=== PATIENT | female | born 1950 | race Caucasian/White ===

== ENCOUNTER 2016-10-13 10:25 | Emergency (ER) | payer BC, MEDICARE ==
--- NOTE | 2016-10-13 11:27 | RAD ---
Exams: Three-view right wrist and three-view right hand COMPARISON: None INDICATION: Mechanical fall yesterday, FOOSH right hand with bruising and pain. TECHNIQUE: PA, lateral and oblique views of the left hand and PA, lateral and oblique views of the right wrist were obtained. FINDINGS: Diffuse bony osteopenia. This limits evaluation for nondisplaced fracture. There is a displaced, intra-articular fracture within the proximal phalanx of the fourth finger. This is not well-seen on the lateral view due to overlapping osseous structures. Fracture fragments are splayed by up to at least 3 mm, and there is mild ulnar angulation of the dominant fracture fragment. Associated soft tissue swelling is seen. There is also a mildly displaced intra-articular chip fracture involving the radial aspect of the proximal phalanx of the fifth finger. The displaced fracture fragment is rotated and displaced by a few millimeters in the radial direction. No additional fracture is identified within the right hand or wrist. IMPRESSION: 1. Displaced intra-articular fractures involving the proximal phalanges of the right fourth and fifth fingers as above. 2. No acute osseous abnormality in the right wrist. 3. Osteopenia.
== END 2016-10-13 13:11 | disposition home or self-care (01) ==
LOC: ED 10:25
DX: S62.616A Displaced fracture of proximal phalanx of right little finger, initial encounter for closed fracture (principal); S62.614A Displaced fracture of proximal phalanx of right ring finger, initial encounter for closed fracture; R07.9 Chest pain, unspecified; M25.531 Pain in right wrist; F17.210 Nicotine dependence, cigarettes, uncomplicated; W18.30XA Fall on same level, unspecified, initial encounter; Y92.9 Unspecified place or not applicable

== ENCOUNTER 2016-10-15 10:17 | Inpatient (IN) | payer MEDICARE ==
--- NOTE | 2016-10-15 10:55 | RAD ---
HISTORY: Ground level fall 3 days ago. Right hip pain. Prior history of pubic rami fracture on the right. COMPARISONS: 09/07/2011 FINDINGS: AP pelvis with AP and crosstable lateral views of the right hip are obtained. Bones: Comminuted intertrochanteric fracture is identified involving the right hip. Proximal retraction of the distal fracture fragment is noted. No intra-articular extension is present. Posterior back deformity from the patient's prior right superior and inferior pubic rami fractures are also present. Joints: Moderate superior joint space loss is present bilaterally. Soft tissue: Normal Other: Nonspecific bowel gas pattern overlays the osseous structures.. IMPRESSION: Intertrochanteric fracture of the right hip. Findings were called to Ms. Reyez at approximately 1049 hours on 10/15/2016.
[2016-10-15 11:34] LABS: ABSOLUTE NEUTROPHIL COUNT 9.2 K/mm3 (1.8-7.7); BASO # 0.1 K/mm3 (0.0-0.2); BASO % 0.5 % (0.2-1.0); EOS # 0.1 (0.0-0.5); EOS % 0.9 % (0.9-2.9); HEMATOCRIT 42.9 % (37.0-47.0); HEMOGLOBIN 13.7 gm/l (12.0-16.0); IMM NEUT # 0.2 K/mm3 (0-0.2); IMM NEUT% 1.2 % (0-1); LYMPH # 2.1 (1.0-4.8); MEAN CELL VOLUME 91.9 fl (81.0-99.0); MEAN CORPUSCULAR HEMOGLOBIN 29.3 pg (27.0-31.0); MEAN CORPUSCULAR HGB CONC 31.9 g/dl (33.0-37.0); MEAN PLATELET VOLUME 10.5 fl (7.4-10.4); MONO # 1.3 (0.0-0.8); MONO % 10.3 % (4-12); NEUT % 71.1 % (43-75); PLATELET COUNT 279 K/mm3 (130-400); RED CELL DISTRIBUTION WIDTH 14.7 % (11.5-14.5)
[2016-10-15 11:49] LABS: ALB/GLOB RATIO 1.3 (>1.0); ALBUMIN 3.9 gm/dL (3.5-5.7); CALCIUM 9.5 mg/dL (8.6-10.3)
[2016-10-15 12:04] LABS: INR 0.91; PROTHROMBIN TIME 9.6 SECONDS (9.3-11.4)
--- NOTE | 2016-10-15 12:13 | RAD ---
10/15/2016 12:09 PM CHEST-AP BEDSIDE History: Preop chest x-ray. Comparison: None Findings: Single AP view of the chest is obtained. The lungs are clear with out effusion or pneumothorax. The cardiomediastinal silhouette is unremarkable.. The osseous structures demonstrate S type thoracolumbar scoliosis, which distorts the normal anatomy. Diffuse osteopenia is also noted. IMPRESSION: No acute intrathoracic process.
[2016-10-15] MEDS ORDERED: MENTHOL/CETYLPYRD 1 EACH LOZENGE PO PRN (12:54)
[2016-10-15] MEDS ORDERED: BISACODYL 10 MG SUP PR PRN (12:54)
[2016-10-15] MEDS ORDERED: MAGNESIUM HYDROXIDE 30 ML UDCUP PO PRN (12:54)
[2016-10-15] MEDS ORDERED: BLISTEX LIPSTICK 1 EACH TP PRN (12:54)
[2016-10-15] MEDS ORDERED: SODIUM CHLORIDE 0.9% 100 ML IV PRN (12:54)
[2016-10-15] MEDS ORDERED: ACETAMINOPHEN 325 MG TABLET PO PRN (12:54)
[2016-10-15] MEDS ORDERED: BISACODYL 5 MG TABLET.EC PO PRN (12:54)
[2016-10-15] MEDS ORDERED: CLINDAMYCIN 600 MG PREMIX 600 MG in Premix (D5W) 50 ml 1 EACH IV PRN (12:55)
--- NOTE | 2016-10-15 12:55 | PDOC36 ---
Provider Note Subject: Please see dictated note for full ortho consult Summary: Pt is a 66 yr old female who is RHD who sustained a fall 3 days ago resulting in a right ring finger intra-articular proximal phalanx fracture. She was seen in the [facility] but continued to have right hip pain. She returned to the ER today and was diagnosed with a right hip intertrochanteric frx with varus angulation. THe patient's PMH is significant for MS and she has poor balance at baseline. She often is in a wheelchair at home. THe patient and I spoke today about her injuries. I spoke to the patient's and with . We will plan on the patient going to surgery Monday where we will perform a right hip intertrochanteric frx ORIF with an IMN and possible right ring finger proximal phalanx fracture CRPP vs ORIF. We will have clinda safety instruction police officer to the OR due to her PCN allergy. NPO after midnight and consent is in the chart.
[2016-10-15] MEDS ORDERED: NICOTINE POLACRILEX 2 MG GUM PO PRN (13:03)
[2016-10-15] MEDS ORDERED: LORAZEPAM 2 MG/ML 1ML SDV IV PRN (13:03)
[2016-10-15] MEDS ORDERED: NICOTINE POLACRILEX 2 MG LOZENGE PO PRN (13:03)
[2016-10-15 13:05] LABS: URINE BILIRUBIN NEGATIVE (NEGATIVE); URINE BLOOD 1+ (NEGATIVE); URINE GLUCOSE (UA) NEGATIVE (NEGATIVE); URINE LEUKOCYTE ESTERASE TRACE (NEGATIVE); URINE NITRITE POSITIVE (NEGATIVE); URINE PROTEIN TRACE (NEGATIVE); URINE UROBILINOGEN NORMAL (0-1 mg/dl)
[2016-10-15 13:07] LABS: URINE APPEARANCE SL CLOUDY; URINE COLOR AMBER
[2016-10-15] MEDS ORDERED: IBUPROFEN 200 MG TABLET PO PRN (13:14)
[2016-10-15 13:16] LABS: URINE BACTERIA 4+; URINE RBC 0 /hpf
[2016-10-15] MEDS ORDERED: ONDANSETRON 4 MG/2ML 2 ML VIAL IV PRN (13:17)
[2016-10-15] MEDS ORDERED: HYDROCODONE/ACETAMINOPHEN 5/325MG TABLET PO PRN (13:17)
[2016-10-15] MEDS ORDERED: ONDANSETRON 4 MG ODT TAB PO PRN (13:17)
[2016-10-15] MEDS ORDERED: NICOTINE 7 MG PATCH 1 EACH TD PRN (13:30)
[2016-10-15] MEDS ORDERED: MULTIVITAMINS 10 ML, FOLIC ACID 2 MG, MAGNESIUM SULFATE 1 G/2 ML 2 G, THIAMINE HCL 100 ... IV ONE ×5 (13:40)
[2016-10-15] MEDS ORDERED: PNEUMOCOCCAL 23-VAL P-SAC VAC 0.5 ML VIAL IM V ONE (13:56)
[2016-10-15 13:59] VITALS: BMI 19.6
[2016-10-15] MEDS ORDERED: PUMP TUBING ONE (14:03)
[2016-10-15] MEDS: MULTIVITAMINS 1 TAB TABLET PO SCH (14:06)
--- NOTE | 2016-10-15 16:28 | HP ---
RAMAN BAILEY [id number] DATE OF ADMISSION: 10/15/2016 CHIEF COMPLAINT: Right hip fracture. HISTORY OF PRESENT ILLNESS: The patient is a 66-year-old female with a history of MS, with poor memory, right-sided weakness and known osteoporosis who had a fall earlier this month. She was initially seen on the and noted to have fractures involving the bases of the 4th and 5th phalanges on the right hand, but on going home she was having persisting pain anytime she had changes in position. This pain was described as being in the right groin area. She was seen by LOLLY Alexis, and x-ray had shown an intertrochanteric fracture of the right hip. She was referred to the Hospitalist Service for admission and anticipated operative repair on 10/16/2016. PAST MEDICAL HISTORY: Remarkable for: 1. Multiple sclerosis. She has previous documentation of gait disturbance and balance difficulties. 2. History of hypertension. 3. History of osteoporosis, with a previous fractured humerus and a pubic ramus fracture in 2010. She had previous been on Boniva, but is not currently. 4. She is also noted to have some degree of dementia. PAST SURGICAL HISTORY: Negative. ALLERGIES: Penicillin. MEDICATIONS: 1. Lisinopril. They are uncertain as to the dosage. 2. She has been taking some ibuprofen and pain medicines recently. She had been on Boniva in the past, but is not currently. 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 She has been 43 years. Her is a retired chief justice for the [employer] [place]. They have three sons, two of which live at home. She smokes a half pack of cigarettes a day. She has about four drinks of beer a day. No particular mandaen affiliation. She has two cats. She walks with some difficulty. She does not have any hobbies anymore and does not do art anymore because of her MS. FAMILY HISTORY: Both parents in their 80's, were generally healthy otherwise. Kids have been healthy. REVIEW OF SYSTEMS: No eye, ear, nose or throat complaints. No respiratory complaints. No heart complaints. No fevers. No stomach complaints. No urinary complaints, other than incontinence, and her notes that she has been generally incontinent since she had the previous pubic ramus fracture in 2010. No breast complaints. No skin complaints. No bowel complaints. No history of CHF. No history of diabetes. No ankle swelling. Memory has been decreased. She does have moving difficulties due to MS. CODE STATUS: She is DNR status according to her . PHYSICAL EXAMINATION: GENERAL: A nontoxic female. VITAL SIGNS: Blood pressure is 133/98. Heart rate 98. Temperature 98.4. Saturation 97% on room air. Pulse of 14. Respirations are 14. Pain is 5/10. HEENT: Normocephalic, atraumatic. Pupils are small bilaterally. Ears are normal bilaterally. Nose is unremarkable. Mouth is unremarkable. Dentition is fairly good. NECK: Supple. No JVD. No tenderness. LUNGS: Clear to auscultation bilaterally. HEART: Regular rate and rhythm, without murmur. ABDOMEN: Soft, nontender and nondistended. Bowel sounds are normal. GENITOURINARY: Exam is deferred. BREASTS: Exam is deferred. EXTREMITIES: Right hand with bruising and deformity noted, with the 4th and 5th fingers displaced away from the thumb. Her right hip is externally rotated and slightly shortened. Knees, tibia, fibula, ankles and feet are unremarkable, although her 3rd digit on both feet is shorter than would be expected. Pulses are good in both feet at the dorsalis pedis. Wrists; pulses are present bilaterally. NEUROLOGIC: She is alert and answers appropriately. Cranial nerves are intact. Speech appears to be clear and appropriate. Although she has difficulty with history and although she is oriented to location, she is unable to tell me the month or the year. LABS: White count 12.9, hemoglobin 13.7, platelets 279. MCV is 91.9, sodium 138, potassium 3.8, chloride 103, C02 of 25, BUN of 21, creatinine 0.6 and glucose 95. AST of 56 and ALT of 47. Alkaline phosphatase of 101. Albumin 3.9, globulin 3.0 and INR of 0.91. IMAGIN. Chest x-ray is normal. 2. Hip x-ray shows intertrochanteric right hip fracture and previous pelvic fracture. EKG: Not available. ASSESSMENT/PLAN: 1. Right intertrochanteric fracture of the right hip. Fall attributed to MS. Weakness, with poor balance. Underlying osteoporosis. Anticipate repair on 10/16/2016. Appreciate orthopedic care. Will also be checking BNP, troponin and a urinalysis. 2. Multiple sclerosis, with poor balance. Right-sided weakness reported. Appreciate therapeutic evaluation. 3. Regular alcohol use. The patient denies any history of withdrawal. Anticipate use of banana bag and monitor for withdrawal. Multivitamin and will check a magnesium level as well. 4. Right hand fracture, right 4th and 5th proximal phalanges. Appreciate orthopedic input. 5. Osteoporosis. Will check a vitamin D level. Appreciate outpatient follow-up. 6. Smoking. Anticipate nicotine replacement as needed. 7. Hypertension, on Lisinopril. is uncertain of dosage, but the last time here it was 20 mg previously. Will order this with perimeter. 8. Dementia attributed to multiple sclerosis. Currently will be checking with occupational therapy. The patient does appear to have some degree of impairment. 9. Code status is DNR, verified with today. 10. Elevated white blood cell count. Will be checking a urinalysis and troponin. Other labs appear to be unremarkable so far. 11. Venous thrombosis prophylaxis. Anticipate mechanical treatment before surgery. DISPOSITION: The patient is hoping to return to home, and will consider this if she is able to manage with her postoperatively, although her sons should be at home as well for some of this time. cc: Dr. Truong Reyez, LOLLY
[2016-10-15] MEDS: DOCUSATE SODIUM 100 MG CAPSULE PO SCH (20:15)
[2016-10-15] MEDS: D5 1/2NS with 20 mEq KCL 1,000 ML IV SCH (21:59)
[2016-10-16 06:21] LABS: BASO # 0.1 K/mm3 (0.0-0.2); BASO % 0.6 % (0.2-1.0); EOS # 0.3 (0.0-0.5); EOS % 2.5 % (0.9-2.9); HEMATOCRIT 34.7 % (37.0-47.0); HEMOGLOBIN 11.3 gm/l (12.0-16.0); IMM NEUT # 0.1 K/mm3 (0-0.2); IMM NEUT% 0.6 % (0-1); LYMPH # 2.2 (1.0-4.8); LYMPH % 22.5 % (15-45); MEAN CELL VOLUME 89.9 fl (81.0-99.0); MEAN CORPUSCULAR HEMOGLOBIN 29.3 pg (27.0-31.0); MEAN CORPUSCULAR HGB CONC 32.6 g/dl (33.0-37.0); MEAN PLATELET VOLUME 10.7 fl (7.4-10.4); MONO # 1.3 (0.0-0.8); MONO % 13.2 % (4-12); NEUT % 60.6 % (43-75); PLATELET COUNT 266 K/mm3 (130-400); RED CELL DISTRIBUTION WIDTH 14.7 % (11.5-14.5)
[2016-10-16 06:40] LABS: CALCIUM 8.2 mg/dL (8.6-10.3)
[2016-10-16] MEDS ORDERED: PROPOFOL 20 ML IV ONE ×3 (07:19→10:36)
[2016-10-16] MEDS ORDERED: MIDAZOLAM HCL 1 MG/ML 2ML VIAL ONE (07:19)
[2016-10-16] MEDS ORDERED: FENTANYL 100 MCG/2 ML VIAL ONE (07:19)
[2016-10-16] MEDS ORDERED: SPINAL PROCEDURAL TRAY 1 EACH ONE (07:19)
[2016-10-16] MEDS ORDERED: CLINDAMYCIN 600 MG PREMIX 50 ML IV ONE (07:21)
[2016-10-16] MEDS ORDERED: LACTATED RINGERS 1,000 ML ONE (07:21)
--- NOTE | 2016-10-16 07:23 | PDOC43 ---
- Subjective Subjective: Reports Pain Tolerable (Pt ready for surgery. NPO since midnight. NO questions today but would like to get the surgery over with this morning.), Denies Chest Pain, Denies Shortness of Breath, Denies Nausea, Denies Vomiting - Objective Vital Signs Temperature 98.1 F 10/16/16 07:06 Pulse Rate 87 10/16/16 07:06 Respiratory Rate 18 10/16/16 07:06 Blood Pressure 128/89 10/16/16 07:06 O2 Saturation by Pulse Oximetry 96 10/16/16 07:06 Oxygen Delivery Method Room Air Oxygen Flow Rate 0 Laboratory 10/16/16 05:30 10/16/16 05:30 10/16/16 05:30 RBC 3.86 L MCHC 32.6 L RDW 14.7 H Estimated GFR 124 H Calcium 8.2 L Active Medication Orders Category Date Time Status Acetaminophen [Tylenol] Med 10/15/16 12:54 Active 650 mg PO Q6H PRN Bisacodyl [Dulcolax] Med 10/15/16 12:54 Active 10 mg HI DAILY PRN Bisacodyl [Dulcolax] Med 10/15/16 12:54 Active 5 mg PO DAILY PRN Clindamycin 600 mg Premix [Cleocin-D5w 600 mg/50 ml] Med 10/15/16 12:55 Active 600 mg Premix (D5W) 50 ml 1 each IV ON HOLD TO OR D5 1/2NS with 20 mEq KCL [D51/2NS with 20 mEq KCL] 1, Med 10/15/16 19:15 Active 000 ml IV 75 mls/hr Docusate Sodium [Colace] Med 10/15/16 21:00 Active 100 mg PO BID Hydrocodone Bit/Acetaminophen [[place] 5/325] Med 10/15/16 13:17 Active 0.5 - 1 tab PO Q4H PRN Ibuprofen [Advil] Med 10/15/16 13:14 Active 400 mg PO Q6H PRN Lip [place] [Blistex] Med 10/15/16 12:54 Active 1 each TP PRN PRN Lisinopril [Prinivil] Med 10/16/16 09:00 Active 20 mg PO DAILY Lorazepam [Ativan] Med 10/15/16 13:03 Active 0.5 mg IV Q4H PRN Magnesium Hydroxide [Milk of Magnesia] Med 10/15/16 12:54 Active 30 ml PO DAILY PRN Menthol/Cetylpyridinium [Cepacol] Med 10/15/16 12:54 Active 1 each PO PRN PRN Multivitamins [One-A-Day] Med 10/15/16 13:30 Active 1 tab PO DAILY Nicotine 7 mg Patch [Nicoderm Cq] Med 10/15/16 13:30 Active 1 each TD DAILY PRN Nicotine Polacrilex Gum [Nicorette Gum] Med 10/15/16 13:03 Active 2 mg PO Q2H PRN Nicotine Polacrilex Lozenge [Commit Lozenge] Med 10/15/16 13:03 Active 2 mg PO Q2H PRN Ondansetron 4 mg/2ml Vial [Zofran] Med 10/15/16 13:17 Active 4 mg IV Q4H PRN Ondansetron ODT [Zofran Odt] Med 10/15/16 13:17 Active 4 mg PO Q4H PRN Remove Patch Med 10/16/16 13:30 Active 1 each TD X1 Sodium Chloride 0.9% 100 ml Med 10/15/16 12:54 Active IV PRN Sodium Chloride 0.9% Flush [Normal Saline 10ml Flush] Med 10/15/16 12:54 Active 10 - 50 ml IV PRN PRN Sodium Chloride 0.9% Flush [Normal Saline 10ml Flush] Med 10/15/16 17:00 Active 10 ml IV Q8HR Intake and Output 10/14/16 10/15/16 10/16/16 23:59 23:59 23:59 Intake Total 835 1135 Output Total 250 450 Balance 585 685 General: Afebrile - Right Upper Extremity Incision: Ecchymosis (Gross deformity of right ring finger with ulnar deviation secondary to intra-articular fracture of the base of the proximal phalanx.) Motor: Extensor Pollicis Longus: 4/5, Finger Flexors: 4/5, Finger Extensors: 4/5 , Wrist Flexors: 4/5, Wrist Extensors: 4/5 Gross Sensation to Light Touch: Present: Median Nerve, Radial Nerve, Absent: Ulnar Nerve (decreased) Capillary Refill: < 3 Seconds (Pt has decreased sensation on the ulnar and radial side of the right ring finger) - Problems (1) Proximal phalanx fracture of finger Status: Acute - Disposition HD#2 s/p admission for a right hip intertrochanteric frx and right ring finger proximal phalanx intra-articular fracture Pt is npo and consented for a right hip IMN for her IT frx and a CRPP vs ORIF for a right ring finger proximal phalanx frx Labs are stable Pt is NWB on the RUE and RLE Clinda data operations manager to the OR
--- NOTE | 2016-10-16 07:27 | PDOC43 ---
- Subjective Chief Complaint: hip pain, fx Patient reports doing ok. Had some dementia related findings during the night, but no significant agitation/delirium. Pain control seems ok. Planning on going to OR today. - Objective Vital Signs Temperature 98.1 F 10/16/16 07:06 Pulse Rate 87 10/16/16 07:06 Respiratory Rate 18 10/16/16 07:06 Blood Pressure 128/89 10/16/16 07:06 O2 Saturation by Pulse Oximetry 96 10/16/16 07:06 Oxygen Delivery Method Room Air Oxygen Flow Rate 0 Vital Signs Last 12 Hours Temp Pulse Resp BP Pulse Ox 10/16/16 07:06 98.1 F 87 18 128/89 96 10/16/16 03:56 97.8 F 92 18 134/86 95 10/16/16 01:00 16 10/16/16 00:00 98.5 F 108 16 128/82 96 10/15/16 20:00 99.2 F 108 18 133/78 99 Intake and Output 10/14/16 10/15/16 10/16/16 23:59 23:59 23:59 Intake Total 835 1135 Output Total 250 450 Balance 585 685 General: Alert, Cooperative, No Acute Distress HEENT: Atraumatic Lungs: Clear to Auscultation Bilaterally, Normal Air Movement Cardiovascular: Regular Rate and Rhythm Abdomen: Soft, Normal Bowel Sounds, Non-Distended Extremities: Edema (mild puffiness and bruising of R hand), Other (R hand with ulnar deviation of 4th and 5th fingers, bruising. R hip with internal rotation.) Neurological: Normal Speech Psych/Mental Status: Normal Affect Laboratory 10/16/16 05:30 10/16/16 05:30 10/16/16 05:30 RBC 3.86 L MCHC 32.6 L RDW 14.7 H Estimated GFR 124 H Calcium 8.2 L Current Medications: Current meds reviewed in EMR. Active Medications Acetaminophen (Tylenol) 650 mg PO Q6H PRN PRN Reason: Pain or Temperature > 100.5 F Acetaminophen/Hydrocodone Bitart ([place] 5/325) 0.5 - 1 tab PO Q4H PRN PRN Reason: Pain Benzocaine/Menthol (Cepacol) 1 each PO PRN PRN PRN Reason: Sore Throat Bisacodyl (Dulcolax) 10 mg PA DAILY PRN PRN Reason: Constipation Bisacodyl (Dulcolax) 5 mg PO DAILY PRN PRN Reason: Constipation Docusate Sodium (Colace) 100 mg PO BID [facility] Last Admin: 10/15/16 20:15 Dose: 100 mg Clindamycin HCl/Dextrose 600 (mg/ Premix (D5W) 50 ml) 50 mls @ 150 mls/hr IV ON HOLD TO OR PRN PRN Reason: ANTIBIOTIC PROPHYLAXIS Sodium Chloride (Sodium Chloride 0.9%) 100 mls @ 25 mls/hr IV PRN PRN PRN Reason: Flush Potassium Chloride/Dextrose/Sod Cl (D51/2ns With 20 Meq Kcl) 1,000 mls @ 75 mls /hr IV .[id number] [facility] Last Admin: 10/15/16 21:59 Dose: 75 mls/hr Ibuprofen (Advil) 400 mg PO Q6H PRN PRN Reason: Pain Lisinopril (Prinivil) 20 mg PO DAILY [facility] Lorazepam (Ativan) 0.5 mg IV Q4H PRN PRN Reason: Anxiety Magnesium Hydroxide (Milk Of Magnesia) 30 ml PO DAILY PRN PRN Reason: Constipation Miscellaneous (Remove Patch) 1 each TD X1 [facility] Multivitamins (One-A-Day) 1 tab PO DAILY [facility] Last Admin: 10/15/16 14:06 Dose: 1 tab Nicotine (Nicoderm Cq) 1 each TD DAILY PRN PRN Reason: Withdrawal Symptoms Nicotine Polacrilex (Commit Lozenge) 2 mg PO Q2H PRN PRN Reason: Withdrawal Symptoms Nicotine Polacrilex (Nicorette Gum) 2 mg PO Q2H PRN PRN Reason: Withdrawal Symptoms Ondansetron HCl (Zofran) 4 mg IV Q4H PRN PRN Reason: Nausea/Vomiting Ondansetron HCl (Zofran Odt) 4 mg PO Q4H PRN PRN Reason: Nausea/Vomiting Petrolatum/Paraffin/Mineral Oil (Blistex) 1 each TP PRN PRN PRN Reason: Dry and/or chapped lips Sodium Chloride (Normal Saline 10ml Flush) 10 ml IV Q8HR [facility] Last Admin: 10/16/16 03:14 Dose: Not Given Sodium Chloride (Normal Saline 10ml Flush) 10 - 50 ml IV PRN PRN PRN Reason: IV Flush - Problems: Assessment/Plan (1) Intertrochanteric fracture of right hip Status: Acute Assessment/Plan: Appreciate ortho, anesthesia care. Anticipate ORIF/IM nailing this am. (2) Dementia Status: Chronic Assessment/Plan: Hx MS Did get banana bag yesterday. On MVI; Caution with meds to try to reduce chance of delirium. (3) Hypertension Status: Chronic Assessment/Plan: Stable, paramters (4) Multiple sclerosis Status: Chronic Assessment/Plan: Stable, not on active therapies at this time. (5) Osteoporosis Status: Chronic Assessment/Plan: Follow up outpt. Previously on Boniva (6) Smoking 1/2 pack a day or less Status: Chronic Assessment/Plan: Nicotine replacement prn VTE Prophylaxis: mechanical. Disposition: home vs SNF, [facility] /
[2016-10-16] MEDS ORDERED: KETAMINE HCL UD SYRINGE 100 MG/2 ML IV ONE (08:12)
[2016-10-16] MEDS ORDERED: DIPHENHYDRAMINE HCL 50 MG/1 ML VIAL ONE (08:17)
[2016-10-16] MEDS ORDERED: DEXAMETHASONE SOD PHOS 4 MG/1 ML VIAL ONE (08:20)
[2016-10-16] MEDS: DOCUSATE SODIUM 100 MG CAPSULE PO SCH ×3 (08:32→22:02)
[2016-10-16] MEDS: MULTIVITAMINS 1 TAB TABLET PO SCH (08:32)
[2016-10-16] MEDS ORDERED: HYDROMORPHONE HCL 1 MG/ML SYRINGE IV PRN (08:49)
[2016-10-16] MEDS ORDERED: NALOXONE HCL 0.4 MG/ML VIAL IV PRN (08:49)
[2016-10-16] MEDS ORDERED: FENTANYL 100 MCG/2 ML VIAL IV PRN (08:49)
[2016-10-16] MEDS ORDERED: PROMETHAZINE HCL 25 MG/ML VIAL IM PRN (08:49)
[2016-10-16] MEDS ORDERED: MEPERIDINE 25 MG/ML SYRINGE IV PRN (08:49)
[2016-10-16] MEDS ORDERED: HYDRALAZINE HCL 20 MG/1 ML VIAL IV PRN (08:49)
[2016-10-16] MEDS ORDERED: LABETALOL HCL 5 MG/ML 20ML VIAL IV PRN (08:49)
[2016-10-16] MEDS ORDERED: ATROPINE SULFATE 0.4 MG/1 ML VIAL IV PRN (08:49)
[2016-10-16] MEDS ORDERED: LACTATED RINGERS 1,000 ML IV SCH (09:00)
[2016-10-16] MEDS ORDERED: LISINOPRIL 20 MG TABLET PO SCH (09:00)
[2016-10-16] MEDS ORDERED: BUPIVACAINE 0.5% (PRES FREE) 30 ML VIAL ONE (10:33)
[2016-10-16] MEDS ORDERED: ONDANSETRON 4 MG/2ML 2 ML VIAL ONE (11:30)
--- NOTE | 2016-10-16 11:42 | RAD ---
HIP RIGHT 2 VIEWS PORTABLE HISTORY: Intraoperative fluoroscopy for ORIF. COMPARISONS: 10/15/2016 plain from series. FINDINGS: 4 overhead fluoroscopic images are provided for review. These images demonstrate intramedullary adriana and screw fixation of the patient's intertrochanteric fracture of the right hip. Study is limited with respect osseous detail given fluoroscopic technique. Fluoroscopy time: 173.7 seconds IMPRESSION: Intraoperative fluoroscopy as above. Please see orthopedist note regarding the procedure for further details.
[2016-10-16] MEDS ORDERED: KETOROLAC TROMETHAMINE 30 MG/ML 1 ML VIAL ONE (11:49)
--- NOTE | 2016-10-16 12:17 | PCMBPN ---
Brief Post Op Note: Date of Procedure: 10/16/16 Preoperative Diagnosis: 1. right hip intertrochanteric frx and right ring finger proximal phalanx intraarticular frx Postoperative Diagnosis: 1. [Same] Procedure: right hip intertrochanteric frx ORIF with placement of intrameduallary nail and right ring finger proximal phalanx intra-articular frx CRPP Surgeon: Chris Goldman MD Assist: Walker GLASSBLOWER Anesthesia: Spinal and 12mL 0.5% marcaine without epi for a right ring finger digital block Findings: Pt had a right IT frx fixed with a Je[employer] Intertan nail (95 and 90mm screws proximally) and 32.5 and 37.5 distally in a 10mm x 36mm nail. 3 x .45 k wires used for the CRPP of the right ring finger placed below the skin surface Condition: extubated, stable vitals, transferred to pacu Complications: None IV Fluids: 2200 mLs of LR Urine Output: 250 mLs Estimated Blood Loss: 50 mLs Tourniquet Time: [N/A] Specimens: [N/A] Implants: see above Drains: [N/A] PLAN: WBAT on the RLE and NWB on the RUE. Keep splint on the RUE at all times. Clinda x 24 hours post-op. Lovenox for DVT on POD#1. PT and OT to work with the patient post-op for transfers
[2016-10-16] MEDS ORDERED: MORPHINE SULFATE 4 MG/ML SYRINGE IV PRN (12:50)
[2016-10-16] MEDS ORDERED: ONDANSETRON 4 MG/2ML 2 ML VIAL IV PRN (12:50)
[2016-10-16] MEDS ORDERED: CALCIUM CARBONATE 500 MG TAB.CHEW PO PRN (12:50)
--- NOTE | 2016-10-16 13:02 | RAD ---
HAND RIGHT 2 VIEWS HISTORY: Intraoperative fluoroscopy, ORIF. COMPARISONS: Plain films 10/13/2016 FINDINGS: 2 overhead fluoroscopic images are provided for review. These images demonstrate K wire fixation of the patient's fourth proximal phalanx fracture. The patient's fifth proximal phalanx fracture is again noted. Study is limited with respect osseous detail given fluoroscopic technique. Fluoroscopy time: 4 minutes and 12 seconds. IMPRESSION: Intraoperative fluoroscopy as above. Please see orthopedist note regarding the procedure for further details.
[2016-10-16] MEDS: LACTATED RINGERS 1,000 ML IV SCH ×2 (13:24→21:26)
[2016-10-16] MEDS ORDERED: REMOVE PATCH 1 EACH UNIT TD SCH (13:30)
--- NOTE | 2016-10-16 13:41 | RAD ---
PELVIS, FEMUR RIGHT HISTORY: Postop ORIF. COMPARISONS: Right hip series to 12/29/2016 FINDINGS: AP pelvis with AP and frog-leg lateral views of the right femur are obtained. These images demonstrate intramedullary adriana placement with screw fixation across the patient's intertrochanteric fracture. Hardware is intact without signs of failure or loosening. Soft tissue gas and skin jarred are present compatible with the postoperative state. No new fracture or dislocation. Limited evaluation of the pelvis and knee are unremarkable with posttraumatic deformity from the patient's prior injury to the right pubic rami. IMPRESSION: Satisfactory postoperative exam.
[2016-10-16] MEDS: ACETAMINOPHEN 500 MG TABLET PO SCH ×3 (14:13→22:01)
[2016-10-16] MEDS: CLINDAMYCIN 600 MG PREMIX 600 MG in Premix (D5W) 50 ml 1 EACH IV SCH ×2 (14:13→21:26)
[2016-10-16] MEDS ORDERED: IV START KIT ONE (17:57)
[2016-10-16] MEDS ORDERED: TRAMADOL HCL 50 MG TABLET PO PRN (19:00)
[2016-10-16] MEDS ORDERED: PUMP TUBING ONE (21:15)
[2016-10-16] MEDS: ASCORBIC ACID 500 MG TABLET PO SCH ×2 (21:27→22:04)
[2016-10-16] MEDS: MULTIVIT W/ MINERALS 1 TAB TABLET PO SCH ×2 (21:28→22:04)
[2016-10-16] MEDS: SULFAMETHOXAZOLE 800 MG/TRIMETHOPRIM 160 MG TABLET PO SCH ×2 (21:28→22:04)
[2016-10-16] MEDS: D5 1/2NS with 20 mEq KCL 1,000 ML IV SCH (21:32)
[2016-10-16] MEDS: FOLIC ACID 1 MG TABLET PO SCH ×2 (21:35→22:04)
[2016-10-16] MEDS: THIAMINE HCL 100 MG TABLET PO SCH ×2 (21:35→22:04)
[2016-10-17] MEDS: ACETAMINOPHEN 500 MG TABLET PO SCH ×4 (02:43→19:07)
[2016-10-17] MEDS: OXYCODONE HCL 5 MG TABLET PO PRN ×2 (03:25→15:29)
[2016-10-17] MEDS: LACTATED RINGERS 1,000 ML IV SCH ×3 (05:30→20:53)
[2016-10-17 06:04] LABS: MEAN CELL VOLUME 91.7 fl (81.0-99.0); MEAN CORPUSCULAR HEMOGLOBIN 29.6 pg (27.0-31.0); MEAN CORPUSCULAR HGB CONC 32.3 g/dl (33.0-37.0); RED CELL DISTRIBUTION WIDTH 14.6 % (11.5-14.5)
[2016-10-17 06:27] LABS: CALCIUM 8.7 mg/dL (8.6-10.3)
--- NOTE | 2016-10-17 07:44 | PDOC43 ---
- Subjective Subjective: Reports Pain Tolerable, Reports Other (Pt confused this morning. Does not remember why she is here at the hospital. She does know she is at [facility]) - Objective Vital Signs Temperature 97.7 F 10/17/16 04:00 Pulse Rate 84 10/17/16 04:00 Respiratory Rate 16 10/17/16 07:20 Blood Pressure 123/84 10/17/16 04:00 O2 Saturation by Pulse Oximetry 97 10/17/16 04:00 Oxygen Delivery Method Room Air Oxygen Flow Rate 0 Laboratory 10/17/16 05:30 10/17/16 05:30 10/17/16 05:30 RBC 3.38 L MCHC 32.3 L RDW 14.6 H Estimated GFR 124 H Active Medication Orders Category Date Time Status Acetaminophen [Tylenol] Med 10/16/16 14:00 Active 1,000 mg PO Q6H Ascorbic Acid [Vitamin C] Med 10/16/16 21:00 Active 500 mg PO BID Bisacodyl [Dulcolax] Med 10/19/16 12:19 Active 10 mg NM DAILY PRN Calcium Carbonate [Tums] Med 10/16/16 12:50 Active 1,000 - 2,000 mg PO Q2H PRN Docusate Sodium [Colace] Med 10/16/16 21:00 Active 100 mg PO BID Enoxaparin Sodium [Lovenox] Med 10/17/16 11:00 Active 40 mg SUB-Q Q24H Folic Acid Med 10/16/16 20:30 Active 1 mg PO DAILY Lactated Ringers 1,000 ml Med 10/16/16 12:50 Active IV 125 mls/hr Magnesium Hydroxide [Milk of Magnesia] Med 10/17/16 12:19 Active 30 ml PO DAILY PRN Morphine Sulfate Med 10/16/16 12:50 Active 4 mg IV Q4H PRN Multivitamin W/ Minerals [Theragran-M] Med 10/16/16 21:00 Active 1 tab PO BEDTIME Multivitamins [One-A-Day] Med 10/17/16 09:00 Active 1 tab PO DAILY Ondansetron 4 mg/2ml Vial [Zofran] Med 10/16/16 12:50 Active 4 - 6 mg IV Q6H PRN Oxycodone HCl [Roxicodone] Med 10/16/16 12:50 Active 5 - 10 mg PO Q4H PRN Sodium Chloride 0.9% Flush [Normal Saline 10ml Flush] Med 10/16/16 12:50 Active 10 - 50 ml IV PRN PRN Sodium Chloride 0.9% Flush [Normal Saline 10ml Flush] Med 10/16/16 17:00 Active 10 ml IV Q8HR Sulfamethoxazole/Trimethoprim [Septra Ds] Med 10/16/16 19:00 Active 1 each PO BID Thiamine HCl Med 10/16/16 20:30 Active 100 mg PO DAILY Tramadol HCl [Ultram] Med 10/16/16 19:00 Active 50 mg PO Q6H PRN Intake and Output 10/15/16 10/16/16 10/17/16 23:59 23:59 23:59 Intake Total 835 4300 1942 Output Total 250 1950 700 Balance 585 2350 1242 General: Afebrile - Right Upper Extremity Incision: Dressing Clean/Dry/Intact, Other (Cap refill < 2 sec in each digit. She has gross sensation to light touch on each finger) Gross Sensation to Light Touch: Present: Median Nerve, Ulnar Nerve, Radial Nerve - Right Lower Extremity Incision: Dressing Clean/Dry/Intact Motor: Extensor Hallucis Longus: 4/5, Tibialis Anterior: 4/5, Gastrocnemius: 4/5 , Peroneals: 4/5 Gross Sensation to Light Touch: Present: Deep Peroneal Nerve, Superficial Peroneal Nerve, Medial Plantar Nerve, Lateral Plantar Nerve, Sural Nerve, Saphenous Nerve Capillary Refill: < 3 Seconds (Pt has right foot baseline altered sensation from her MS.) - Problems (1) Proximal phalanx fracture of finger Status: Acute - Disposition POD#1 s/p a right hip intertrochanteric frx IMN and right ring finger proximal phalanx intra-articular fracture CRPP Pt is NWB on the RUE in the splint at all times. She is WBAT on the RLE for transfers. Pt uses a wheelchair a lot at baseline Labs are stable PT and OT to work with the patient today Pt is confused this morning and we will see how this resolves. Recommending minimzing narcotics Clinda x 24 hours postop Appreciate medicine's input on the pt
[2016-10-17] MEDS: SULFAMETHOXAZOLE 800 MG/TRIMETHOPRIM 160 MG TABLET PO SCH ×2 (08:02→21:09)
[2016-10-17] MEDS ORDERED: MULTIVITAMINS 1 TAB TABLET PO SCH (09:00)
[2016-10-17] MEDS: ASCORBIC ACID 500 MG TABLET PO SCH ×2 (10:09→21:09)
[2016-10-17] MEDS: THIAMINE HCL 100 MG TABLET PO SCH (10:09)
[2016-10-17] MEDS: DOCUSATE SODIUM 100 MG CAPSULE PO SCH ×2 (10:09→21:09)
[2016-10-17] MEDS: FOLIC ACID 1 MG TABLET PO SCH (10:10)
[2016-10-17] MEDS ORDERED: MAGNESIUM HYDROXIDE 30 ML UDCUP PO PRN (12:19)
[2016-10-17] MEDS: ENOXAPARIN SODIUM 40 MG/0.4 ML SYRINGE SUB-Q SCH (12:37)
--- NOTE | 2016-10-17 16:44 | PDOC43 ---
- Subjective Chief Complaint: hip pain, fx Patient reports feeling pretty good, but complains that this cold is taking a long time to go away. - Objective Vital Signs Temperature 98.0 F 10/17/16 16:03 Pulse Rate 94 10/17/16 16:03 Respiratory Rate 20 10/17/16 16:03 Blood Pressure 130/84 10/17/16 16:03 O2 Saturation by Pulse Oximetry 93 10/17/16 16:03 Oxygen Delivery Method Room Air Oxygen Flow Rate 0 Vital Signs Last 12 Hours Temp Pulse Resp BP Pulse Ox 10/17/16 16:03 98.0 F 94 20 130/84 93 10/17/16 15:38 20 10/17/16 11:40 98.0 F 80 20 130/80 98 10/17/16 07:38 98.0 F 74 20 148/90 98 10/17/16 07:20 16 10/17/16 05:38 20 Intake and Output 10/15/16 10/16/16 10/17/16 23:59 23:59 23:59 Intake Total 835 4300 1942 Output Total 250 1950 700 Balance 585 2350 1242 Laboratory 10/17/16 05:30 10/17/16 05:30 10/17/16 05:30 RBC 3.38 L MCHC 32.3 L RDW 14.6 H Estimated GFR 124 H Current Medications: Current meds reviewed in EMR. Active Medications Acetaminophen (Tylenol) 1,000 mg PO Q6H [facility] Last Admin: 10/17/16 15:29 Dose: 1,000 mg Ascorbic Acid (Vitamin C) 500 mg PO BID [facility] Last Admin: 10/17/16 10:09 Dose: 500 mg Bisacodyl (Dulcolax) 10 mg [place] DAILY PRN PRN Reason: If no BM by POD#3 Calcium Carbonate/Glycine (Tums) 1,000 - 2,000 mg PO Q2H PRN PRN Reason: Heartburn/Indigestion Docusate Sodium (Colace) 100 mg PO BID [facility] Last Admin: 10/17/16 10:09 Dose: 100 mg Enoxaparin Sodium (Lovenox) 40 mg SUB-Q Q24H [facility] Last Admin: 10/17/16 12:37 Dose: 40 mg Folic Acid (Folic Acid) 1 mg PO DAILY [facility] Last Admin: 10/17/16 10:10 Dose: 1 mg Lactated Ringer's (Lactated Ringers) 1,000 mls @ 125 mls/hr IV .Q8H [facility] Last Admin: 10/17/16 05:30 Dose: 125 mls/hr Magnesium Hydroxide (Milk Of Magnesia) 30 ml PO DAILY PRN PRN Reason: If no BM by evening of POD#1 Morphine Sulfate (Morphine Sulfate) 4 mg IV Q4H PRN PRN Reason: Pain Multivitamins/Minerals (Theragran-M) 1 tab PO BEDTIME [facility] Last Admin: 10/16/16 22:04 Dose: Not Given Ondansetron HCl (Zofran) 4 - 6 mg IV Q6H PRN PRN Reason: Nausea/Vomiting Oxycodone HCl (Roxicodone) 5 - 10 mg PO Q4H PRN PRN Reason: Pain (Moderate) Last Admin: 10/17/16 15:29 Dose: 5 mg Sodium Chloride (Normal Saline 10ml Flush) 10 - 50 ml IV PRN PRN PRN Reason: IV Flush Last Admin: 10/16/16 21:26 Dose: 10 ml Sodium Chloride (Normal Saline 10ml Flush) 10 ml IV Q8HR [facility] Last Admin: 10/17/16 12:41 Dose: 10 ml Thiamine HCl (Thiamine Hcl) 100 mg PO DAILY [facility] Last Admin: 10/17/16 10:09 Dose: 100 mg Tramadol HCl (Ultram) 50 mg PO Q6H PRN PRN Reason: Pain (Mild) Trimethoprim/Sulfamethoxazole (Septra Ds) 1 each PO BID [facility] Last Admin: 10/17/16 08:02 Dose: 1 each - Problems: Assessment/Plan (1) Intertrochanteric fracture of right hip Qualifiers: Encounter type: initial encounter Fracture type: closed Qualifier Code: (S72.141A) Displaced intertrochanteric fracture of right femur, initial encounter for closed fracture Status: Acute Assessment/Plan: Appreciate ortho, anesthesia care. s/p ORIF/IM nailing 10/16 (2) Dementia Qualifiers: Dementia type: unspecified type Dementia behavioral disturbance: without behavioral disturbance Qualifier Code: (F03.90) Unspecified dementia without behavioral disturbance Status: Chronic Assessment/Plan: Hx MS Did get banana bag on admit On MVI; Caution with meds to try to reduce chance of delirium. (3) Hypertension Status: Chronic Assessment/Plan: Stable, parameters (4) Multiple sclerosis Status: Chronic Assessment/Plan: Stable, not on active therapies at this time. (5) Osteoporosis Status: Chronic Assessment/Plan: Follow up outpt. Previously on Boniva (6) Smoking 1/2 pack a day or less Status: Chronic Assessment/Plan: Nicotine replacement prn VTE Prophylaxis: mechanical. Disposition: anticipate SNF, poss 10/18. Patient with regular alcohol use, beer ordered for pt. Received banana bag earlier. No w/d suggested at this time.
[2016-10-17] MEDS: MULTIVIT W/ MINERALS 1 TAB TABLET PO SCH (21:09)
[2016-10-18] MEDS: ACETAMINOPHEN 500 MG TABLET PO SCH ×4 (01:28→20:00)
[2016-10-18] MEDS: OXYCODONE HCL 5 MG TABLET PO PRN ×3 (01:28→17:05)
[2016-10-18 06:04] LABS: HEMATOCRIT 29.5 % (37.0-47.0); HEMOGLOBIN 9.8 gm/l (12.0-16.0); MEAN CELL VOLUME 89.7 fl (81.0-99.0); MEAN CORPUSCULAR HEMOGLOBIN 29.8 pg (27.0-31.0); MEAN CORPUSCULAR HGB CONC 33.2 g/dl (33.0-37.0); RED CELL DISTRIBUTION WIDTH 14.5 % (11.5-14.5)
[2016-10-18 06:21] LABS: CALCIUM 8.6 mg/dL (8.6-10.3)
[2016-10-18] MEDS: LACTATED RINGERS 1,000 ML IV SCH ×2 (06:26→14:57)
--- NOTE | 2016-10-18 08:04 | PDOC43 ---
- Subjective Subjective: Reports Pain Tolerable (Pt states she has no pain), Denies Chest Pain, Denies Shortness of Breath, Denies Nausea, Denies Vomiting - Objective Vital Signs Temperature 98.4 F 10/18/16 07:33 Pulse Rate 92 10/18/16 07:33 Respiratory Rate 16 10/18/16 07:33 Blood Pressure 146/85 10/18/16 07:33 O2 Saturation by Pulse Oximetry 97 10/18/16 07:33 Oxygen Delivery Method Room Air Oxygen Flow Rate 0 Laboratory 10/18/16 05:30 10/18/16 05:30 10/18/16 05:30 RBC 3.29 L Estimated GFR 100 H Active Medication Orders Category Date Time Status Acetaminophen [Tylenol] Med 10/16/16 14:00 Active 1,000 mg PO Q6H Ascorbic Acid [Vitamin C] Med 10/16/16 21:00 Active 500 mg PO BID Bisacodyl [Dulcolax] Med 10/19/16 12:19 Active 10 mg MD DAILY PRN Calcium Carbonate [Tums] Med 10/16/16 12:50 Active 1,000 - 2,000 mg PO Q2H PRN Docusate Sodium [Colace] Med 10/16/16 21:00 Active 100 mg PO BID Enoxaparin Sodium [Lovenox] Med 10/17/16 11:00 Active 40 mg SUB-Q Q24H Folic Acid Med 10/16/16 20:30 Active 1 mg PO DAILY Lactated Ringers 1,000 ml Med 10/16/16 12:50 Active IV 125 mls/hr Magnesium Hydroxide [Milk of Magnesia] Med 10/17/16 12:19 Active 30 ml PO DAILY PRN Morphine Sulfate Med 10/16/16 12:50 Active 4 mg IV Q4H PRN Multivitamin W/ Minerals [Theragran-M] Med 10/16/16 21:00 Active 1 tab PO BEDTIME Ondansetron 4 mg/2ml Vial [Zofran] Med 10/16/16 12:50 Active 4 - 6 mg IV Q6H PRN Oxycodone HCl [Roxicodone] Med 10/16/16 12:50 Active 5 - 10 mg PO Q4H PRN Sodium Chloride 0.9% Flush [Normal Saline 10ml Flush] Med 10/16/16 12:50 Active 10 - 50 ml IV PRN PRN Sodium Chloride 0.9% Flush [Normal Saline 10ml Flush] Med 10/16/16 17:00 Active 10 ml IV Q8HR Sulfamethoxazole/Trimethoprim [Septra Ds] Med 10/16/16 19:00 Active 1 each PO BID Thiamine HCl Med 10/16/16 20:30 Active 100 mg PO DAILY Tramadol HCl [Ultram] Med 10/16/16 19:00 Active 50 mg PO Q6H PRN Intake and Output 10/16/16 10/17/16 10/18/16 23:59 23:59 23:59 Intake Total 4300 2662 1350 Output Total 1950 2100 3800 Balance 2350 562 -2450 General: Afebrile - Right Upper Extremity Incision: Dressing Clean/Dry/Intact Motor: Extensor Pollicis Longus: 5/5 Gross Sensation to Light Touch: Present: Median Nerve, Ulnar Nerve, Radial Nerve Capillary Refill: < 3 Seconds - Right Lower Extremity Incision: Dressing Clean/Dry/Intact Motor: Extensor Hallucis Longus: 5/5, Tibialis Anterior: 5/5, Gastrocnemius: 5/5 , Peroneals: 5/5 Gross Sensation to Light Touch: Present: Deep Peroneal Nerve, Superficial Peroneal Nerve Capillary Refill: < 3 Seconds - Problems (1) Proximal phalanx fracture of finger Status: Acute - Disposition POD#2 s/p a right hip intertrochanteric frx IMN and right ring finger proximal phalanx intra-articular fracture CRPP Pt is NWB on the RUE in the splint at all times. She is WBAT on the RLE for transfers. Pt uses a wheelchair a lot at baseline Labs are stable PT and OT to work with the patient today Pt is less confused this morning. Recommending minimzing narcotics Clinda x 24 hours postop is completed Appreciate medicine's input on the pt
[2016-10-18] MEDS: SULFAMETHOXAZOLE 800 MG/TRIMETHOPRIM 160 MG TABLET PO SCH ×2 (08:34→20:00)
[2016-10-18] MEDS: THIAMINE HCL 100 MG TABLET PO SCH (08:34)
[2016-10-18] MEDS: FOLIC ACID 1 MG TABLET PO SCH (08:34)
[2016-10-18] MEDS: ASCORBIC ACID 500 MG TABLET PO SCH ×2 (08:34→20:01)
[2016-10-18] MEDS: DOCUSATE SODIUM 100 MG CAPSULE PO SCH ×2 (08:34→20:00)
[2016-10-18] MEDS: ENOXAPARIN SODIUM 40 MG/0.4 ML SYRINGE SUB-Q SCH (11:34)
--- NOTE | 2016-10-18 13:27 | PDOC43 ---
- Subjective Chief Complaint: hip pain, fx Some irritability noted. Placement had been limited by SNF concern about alcohol and possibility of w/d. Care managers did discuss with , and preference would be to dc beer to facilitate placement later. Patient reports she is done eating (ate about 1/3 lunch). Pain control is ok, c/ o she can't use her R hand due to injury, (wrapped up postop). - Objective Vital Signs Temperature 98.1 F 10/18/16 11:32 Pulse Rate 99 10/18/16 11:32 Respiratory Rate 17 10/18/16 11:32 Blood Pressure 154/79 10/18/16 11:32 O2 Saturation by Pulse Oximetry 97 10/18/16 11:32 Oxygen Delivery Method Room Air Oxygen Flow Rate 0 Vital Signs Last 12 Hours Temp Pulse Resp BP Pulse Ox 10/18/16 11:32 98.1 F 99 17 154/79 97 10/18/16 07:33 98.4 F 92 16 146/85 97 10/18/16 07:30 16 10/18/16 04:00 98.0 F 92 18 142/88 96 Intake and Output 10/16/16 10/17/16 10/18/16 23:59 23:59 23:59 Intake Total 4300 2662 1350 Output Total 1950 2100 3800 Balance 2350 562 -2450 General: Alert, Other HEENT: Atraumatic Lungs: Clear to Auscultation Bilaterally, Normal Air Movement Cardiovascular: Regular Rate and Rhythm Abdomen: Soft, Normal Bowel Sounds, Non-Distended Extremities: Other (SCDs, R hand wrapped. bruising noted.), No Edema Neurological: Normal Speech Psych/Mental Status: Other (sl irritable affect, c/o Joby Morales being on TV.) Laboratory 10/18/16 05:30 10/18/16 05:30 10/18/16 05:30 RBC 3.29 L Estimated GFR 100 H Current Medications: Current meds reviewed in EMR. Active Medications Acetaminophen (Tylenol) 1,000 mg PO Q6H [facility] Last Admin: 10/18/16 07:59 Dose: 1,000 mg Ascorbic Acid (Vitamin C) 500 mg PO BID [facility] Last Admin: 10/18/16 08:34 Dose: 500 mg Bisacodyl (Dulcolax) 10 mg [place] DAILY PRN PRN Reason: If no BM by POD#3 Calcium Carbonate/Glycine (Tums) 1,000 - 2,000 mg PO Q2H PRN PRN Reason: Heartburn/Indigestion Docusate Sodium (Colace) 100 mg PO BID [facility] Last Admin: 10/18/16 08:34 Dose: 100 mg Enoxaparin Sodium (Lovenox) 40 mg SUB-Q Q24H [facility] Last Admin: 10/18/16 11:34 Dose: 40 mg Folic Acid (Folic Acid) 1 mg PO DAILY [facility] Last Admin: 10/18/16 08:34 Dose: 1 mg Lactated Ringer's (Lactated Ringers) 1,000 mls @ 125 mls/hr IV .Q8H [facility] Last Admin: 10/18/16 06:26 Dose: Not Given Magnesium Hydroxide (Milk Of Magnesia) 30 ml PO DAILY PRN PRN Reason: If no BM by evening of POD#1 Morphine Sulfate (Morphine Sulfate) 4 mg IV Q4H PRN PRN Reason: Pain Last Admin: 10/18/16 03:20 Dose: 4 mg Multivitamins/Minerals (Theragran-M) 1 tab PO BEDTIME [facility] Last Admin: 10/17/16 21:09 Dose: 1 tab Ondansetron HCl (Zofran) 4 - 6 mg IV Q6H PRN PRN Reason: Nausea/Vomiting Oxycodone HCl (Roxicodone) 5 - 10 mg PO Q4H PRN PRN Reason: Pain (Moderate) Last Admin: 10/18/16 08:34 Dose: 5 mg Sodium Chloride (Normal Saline 10ml Flush) 10 - 50 ml IV PRN PRN PRN Reason: IV Flush Last Admin: 10/16/16 21:26 Dose: 10 ml Sodium Chloride (Normal Saline 10ml Flush) 10 ml IV Q8HR [facility] Last Admin: 10/18/16 08:34 Dose: 10 ml Thiamine HCl (Thiamine Hcl) 100 mg PO DAILY [facility] Last Admin: 10/18/16 08:34 Dose: 100 mg Tramadol HCl (Ultram) 50 mg PO Q6H PRN PRN Reason: Pain (Mild) Trimethoprim/Sulfamethoxazole (Septra Ds) 1 each PO BID [facility] Last Admin: 10/18/16 08:34 Dose: 1 each - Problems: Assessment/Plan (1) Intertrochanteric fracture of right hip Qualifiers: Encounter type: initial encounter Fracture type: closed Qualifier Code: (S72.141A) Displaced intertrochanteric fracture of right femur, initial encounter for closed fracture Status: Acute Assessment/Plan: Appreciate ortho, anesthesia care. s/p ORIF/IM nailing 10/16 (2) Dementia Qualifiers: Dementia type: unspecified type Dementia behavioral disturbance: without behavioral disturbance Qualifier Code: (F03.90) Unspecified dementia without behavioral disturbance Status: Chronic Assessment/Plan: Hx MS Did get banana bag on admit On MVI; Caution with meds to try to reduce chance of delirium. Suspect that dementia is primary cause of her needing reorientation. Doubt effect from pain meds is a significant problem. Doesn't appear to be having significant withdrawal so far. (3) Hypertension Status: Chronic Assessment/Plan: Stable, parameters (4) Multiple sclerosis Status: Chronic Assessment/Plan: Stable, not on active therapies at this time. (5) Osteoporosis Status: Chronic Assessment/Plan: Follow up outpt. Previously on Boniva (6) Smoking 1/2 pack a day or less Status: Chronic Assessment/Plan: Nicotine replacement prn (7) E. coli UTI (urinary tract infection) Status: Acute Assessment/Plan: On bactrim for E coli cystitis VTE Prophylaxis: enoxaparin Disposition: anticipate SNF, Patient with regular alcohol use, beer was ordered (now DCd) for pt. Received banana bag earlier. No w/d suggested at this time. Additional Comments: BMI 19.7, suspect underweight due to mild malnutrition.
--- NOTE | 2016-10-18 15:34 | CONS ---
Ines BAILEY : 1950 [id number] DATE OF ADMISSION: October 15, 2016 CHIEF COMPLAINT: "I fell and hurt my right ring finger and I think I broke my right hip." HISTORY OF PRESENT ILLNESS: The patient is a 66-year-old female with a past medical history significant for multiple sclerosis. At baseline the patient has problems with her balance and standing. She has a history back in 2010 of having a right proximal humerus fracture and a pubic rami fracture from falls. She states at baseline she has a poor sensation on her right front and on Monday she sustained a fall onto her right side. The patient was brought to the emergency room where she was diagnosed with an intra-articular proximal phalanx fracture of the right ring finger. In consultation, the patient was sent to Dr. Stanford a plastic surgeon in [place]. However the patient continued to have pain especially sitting in a wheelchair and the patient returned to the emergency room today. An x-ray was obtained in the emergency room diagnosing the patient with a right hip intertrochanteric fracture. I was consulted to see about treatment options. Overall, the patient continues to have pain in her right hip. She states that she has difficulty putting weight on this. Her finger does hurt her but she is in an ulnar gutter splint. Ideally she would not like to have surgery but would like to talk to me about the risks and benefits of treatment options for both her right hand and right leg. She is here today with her who has a power of estate planning attorney. 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 The patient was treated for previous fractures by my former partner Dr. Maira murray in 2011. She was treated nonoperatively. PAST MEDICAL HISTORY: Is significant for multiple sclerosis. ALLERGIES: She has a PENICILLIN allergy. MEDICATIONS: The patient is not taking any medications at this time besides Naprosyn and Motrin. SOCIAL HISTORY: She currently lives with her in [facility]. The patient does not smoke cigarettes. She does have problems with sensation on her right leg as well as motion from many activities. She is stand fit to transfer. She can walk around her house, but it sounds like balance is an issue. REVIEW OF SYSTEMS: The patient notes no recent fevers or chills, colds, no recent falls or injury to her right hip. PHYSICAL EXAMINATION: GENERAL: The patient is alert and oriented times three. No acute distress. HEENT: Extraocular movements are intact bilaterally. HEART: Regular rate. LUNGS: Clear to auscultation bilaterally. EXTREMITIES: Physical exam of her lower extremities demonstrates 4/5 strength of her left noninjured leg of her EHL, tibialis anterior, gastroc and peroneals. She has gross sensation to light touch in the distribution of DP, SP, MP, LP and sural and saphenous nerves, a 1+ PT pulse. I can grossly range her left hip and knee without a problem. She has a negative log roll test. On the left side she can make a composite fist. She has 5/5 strength of her EPL, finger flexors, finger extensors, wrist flexors, wrist extensors and intrinsics and has a 2+ radial pulse with gross sensation to light touch in the distribution of the median, ulnar, radial nerves. A focused exam on the right lower extremity demonstrates a patient lying in the emergency room gurney with her leg externally rotated and flexed. She can grossly circumduct her right foot. She has 4/5 strength of her EHL, tibialis anterior, gastroc, peroneals however she has decreased sensation in all nerve distributions in her right foot. This includes DP, SP, MP, LP, sural and saphenous nerves. The patient has a positive log roll test. Motion of the hip causes right groin pain. I see no signs of abrasion on her right hip or bruising. A focused exam on the right upper extremity demonstrates an ulnar gutter splint. This was removed. The patient has extensive bruising on her right hand. She is tender to touch over the metacarpal head of the right pinky finger and has a gross deformity of the right ring finger with ulnar deviation at the MCP joint. The patient can flex her DIP and PIP joints however she has gross sensation which is decreased to light touch in the ulnar distribution on her right hand. This includes decreased sensation on both the radial and ulnar side of the pinky and long fingers with some decreased sensation just on the long finger itself. RADIOGRAPHS: Chest x-ray performed on October 15, 2016 demonstrates a degenerative scoliosis curve of the lungs. I see no signs of any infiltrate or any signs of pneumonia or any other obvious abnormalities. The patient does have some baseline degenerative changes in her hip. Hip x-rays also performed on October 15, 2016 demonstrates an intertrochanteric fracture of the right hip with varus angulation. The patient has some comminution at the tip of the greater trochanter where the fracture site has exited. On the lateral the patient does have some anterior comminution of the femoral neck. X-rays of the right hand and wrist demonstrate two fractures at the base of the proximal phalanx of the right ring and pinky fingers. The patient has an intra-articular fracture of the proximal phalanx of the ring finger with ulnar deviation. This is an intra-articular fracture that extends to the joint line. The base of the proximal phalanx of the right ring finger demonstrates a small cortical piece off the intra-articular portion of the proximal fifth pinky finger fracture. LABORATORIES: The patient has a white blood cell count of 12.9, hematocrit 42.9, platelets 279. Sodium 138, potassium 3.8, chloride 103, bicarbonate 25, BUN 21, creatinine 0.6. Type and screen has been drawn. ASSESSMENT AND PLAN: The patient is a 66-year-old female who has some balance issues at baseline who had a fall three days ago resulting in the right intertrochanteric fracture and a right proximal phalanx ring finger intra-articular fracture. I talked to the patient about her options. Previously she saw a hand surgeon about the finger fracture. She was originally going to treat this nonoperatively with mau taping however, because she is going under anesthesia she was consider potentially having a procedure such as a closed reduction percutaneous pinning versus open reduction internal fixation. I talked to her about her hip. My plan would be to do a reduction in the operating room moving the femoral neck into a more appropriate position and potentially fixing this in place with a long intramedullary nail versus a DHS implant. I talked to her about the risks and benefits of both procedures. At this point time she would like to suspend any DNR/DNI. She understands that there are risks associated with the surgery but would like to proceed especially if this would potentially contribute to her ability to get out of bed. I think that this is reasonable. Since the patient has a penicillin allergy we will order clindamycin for the operating room and plan on moving ahead with surgical fixation first thing in the morning. I attempted to answer all of her questions today. Job [id number] CC: [facility]
--- NOTE | 2016-10-18 19:12 | OP ---
Ines BAILEY : 1950 [id number] DATE OF PROCEDURE: October 16, 2016 PREOPERATIVE DIAGNOSES: Right hip intertrochanteric fracture and right ring finger proximal phalanx fracture. POSTOPERATIVE DIAGNOSES: Right hip intertrochanteric fracture and right ring finger proximal phalanx fracture. PROCEDURE: RIGHT HIP INTERTROCHANTERIC FRACTURE OPEN REDUCTION INTERNAL FIXATION WITH PLACEMENT OF AN INTRAMEDULLARY NAIL, AND RIGHT RING FINGER PROXIMAL PHALANX INTRA-ARTICULAR FRACTURE CLOSED REDUCTION AND PERCUTANEOUS PINNING. SURGEON: Chris Goldman M.D. SOCIAL SCIENCE RESEARCH ASSISTANT: Sophie Burdick ANESTHESIA: Spinal and 12 mL of 0.5% Marcaine without epinephrine injected by the right ring finger for a digital block. FINDINGS: The patient had a right intertrochanteric fracture fixed with a [employer] InterTAN nail, screws proximally measured 95 x 90 mm screws and distally measured 32.5 and 37.5. These were 5 mm screws. The nail itself was a 10 x 36 mm nail. For the right ring finger three 4.5 K-wires were used in the closed reduction percutaneous pinning. CONDITION: The patient had stable vital signs and transferred to the PACU. She had good pain control secondary to her digital nerve block, and spinal. The patient was placed in an intrinsic plus right hand splint. COMPLICATIONS: None. INTRAVENOUS FLUIDS: 2200 mL of Lactate Ringer's. URINE OUTPUT: 250 mL ESTIMATED BLOOD LOSS: 50 mL SPECIMENS: N/A TOURNIQUET TIME: N/A IMPLANTS: See above. DRAINS: N/A PLAN: The patient will be weight bearing as tolerated on the right lower extremity, but nonweightbearing on the right upper extremity keeping the splint in an intrinsic plus position at all times. We will plan on potentially taking out the K-wires at the four-week dayton. Clindamycin will be used for 24 hours postoperative for perioperative antibiotics. Lovenox for DVT prophylaxis. Starting on postoperative day number one the patient will start with PT and OT to help with her ambulation and transfers. INDICATIONS: The patient is a 66-year-old female with signs and symptoms consistent with a right hip fracture. The patient initially was just seen for a fracture which didn't bother her but not by a lot. We discussed the risks as well as benefits of nonoperative and surgical treatment. I told her that if she did not have that it would be a low likelihood should be able to ambulate. I told her that we could potentially improve the status of her finger and the alignment which was ulnar deviated, if she would allow me to do a percutaneous pinning. I told her that for the surgery itself. We could do this under spinal along with a local block. Nonetheless, I told her there is some real risks. Because of her MS she is at increased risk for aspiration, pneumonia, DVT and infection like in other cases as well as other possible problems such as cardiac arrest, stroke as well as even . She is a DNR/DNI, we agreed to postpone this for 24 hour period. I spoke about this with the patient and her and we agreed to proceed with surgery. PROCEDURE DESCRIPTION: The patient was seen in the preoperative area where I confirmed that the right side was the correct side. She had ipsilateral injuries on her right hip. She had some bruising, corresponding to her right hip intertrochanteric fracture. I marked her right thigh with my initials and the word, "yes." I also marked her right hand with my initials and the word, "yes." I then confirmed with the operating room team that we had all of the necessary equipment. She was brought from the preoperative area to the theater where she was laid on her side, and anesthesia placed a spinal without incident or complication. The patient then required a new intravenous line. This was then started. She was then moved from stretcher to the operating room table. This was a fracture table with a peroneal post in place. Her right foot or surgical foot was well padded and placed in 10 pounds of traction, her left or noninjured but was placed in a well leg were her right arm was placed on top of her body. This would be addressed later with a separate set up. At this point I had the C-arm come in and we confirm that we could obtain appropriate AP and lateral of the hip with some internal rotation and traction to about 25 pounds. The patient's fracture was able to be reduced, but still on the lateral view had some anterior angulation. I thought that this was acceptable and the patient's right lower extremity was prepped and draped in sterile fashion, first with a chlorhexidine scrub followed by a chlorhexidine prep. A bath curtain was draped over the patient. We then confirmed that we could still get good AP and lateral x-rays and then we performed a final time out confirming that the right side was the correct side and that our planned procedure was initially to do a right hip intertrochanteric fracture open reduction internal fixation with placement of a cephalomedullary nail and second to perform a reduction of her proximal phalanx fracture of her ring finger which extended into the MCP joint. With the time out completed we were ready to begin. I used a pen to dayton the greater trochanter. I then made a small stab incision approximately 5 cm proximal to the greater trochanter. Prior to doing this I confirmed that preoperative clindamycin had been given. With the final time out completed I then made a small stab incision 5 cm proximal to the greater trochanter. I placed the tip at the tip of the greater trochanter or just medial to it. I then checked on the lateral view that I was in the position between the anterior two thirds, one third portion of the greater trochanter. With this confirmed I then drove the pin down to the lesser trochanter, again confirming that in the AP and lateral planes that I was intramedullary in the femur. I then used a one step reamer, using the barrel all the way down to the lesser trochanter so that I could seat this down as far as possible. With the reamer completed I then placed a ball tip guide wire into the femoral shaft checking on the AP and lateral that I have appropriate position. I again checked distally to make sure that I was not in too anterior to the cortex. I measured to the tip of the top of the patella and I requested that a 36 mm nail length be used. I then proceeded to ream first with a 10 followed by a 10.5, 11 and 11.5, reaming up with plans to place a 10 mm nail. The final implant was then placed on the jig, it was placed into the femoral canal without incident complication. I then checked on the distal view that it was in an appropriate position and not abutting the anterior cortex. At this point I obtained a good lateral of the femoral head, I moved the jig so that it would be collinear so that my pin would go towards the more anterior aspect of the femoral neck. I adjusted the jig so that it was in the center. I then made an incision more distally on the thigh for the jig itself. I then placed my guide pin. Initially it was too posterior in the head. I readjusted this and made it slightly anterior than center. I thought that this was acceptable. I then checked on the AP plane that it was in an appropriate position. I then kept this pin in place. I drilled the outer cortex and the screw for the worm hole screw. I then reamed and drilled the more proximal screw to 95 and then placed the 95 proximal screw followed by followed by the 90 compression screw. I was able to see some compression of the fracture after this was completed. I made sure in the AP and lateral planes that the screw was not too proud and it was not in the subchondral region of the femoral head. With the proximal screws fixed in place I then had the x-ray tech obtain an AP and lateral of the distal femur. I was able to identify the two screws using the fluoroscopic perfect hole technique, I placed two distal screws going from the lateral to medial in the distal femur. These screws measured 32.5 and 37.5mm. After the screws were placed, traction was taken off of the leg, and the leg was swung outwards and relaxed the IT band. I then irrigated the incisions, closing them with interrupted #0 Vicryl, interrupted #2-0 Vicryl, and jarred. A DSD was applied on each of the three incisions. I then had the leg taken out of the fracture table. The patient was moved more proximally and the foot maher was placed back on the table. Next, the table was rotated 90 degrees and the hand table was placed. A nonsterile tourniquet was then placed on the right arm and we made preparations to proceed with a right-hand proximal phalanx intra-articular fracture CRPP. Prior to draping the hand I performed a digital block, with 7 mL of 0.5% Marcaine of the right ring finger. We then proceeded with a chlorhexidine scrub and wash. With a digital block in place I proceeded to select two K-wires and had my stores assistant hold traction as well as radial deviation reducing the fracture. I placed initially two K-wires across the comminuted intra-articular piece holding this to the radial side. I attempted to place a third K-wire from proximal to distal. This was not possible secondary to be limited room into the second metacarpal head. With manipulation I was able to place one K-wire going from proximal to distal on the radial side going towards ulnar. After doing this I examined the x-rays. I thought this was appropriate. I elected to keep the K-wires in place below the skin. These were cut flush. I obtained fluoroscopic images confirming reduction of the articular space and fracture. The pinning corrected the ulnar deviation. There was still some step off, but I thought that this was acceptable. I elected to not place a fourth K-wire. I did not think that it would be worthwhile to open the fracture itself. I then placed fluffs and placed the patient's right hand in intrinsic plus position with the fingers flexed and with the MCP joint flexed with the PIP and DIP joints and full extension. At this point the patient was taken, with the splint in place, off of the operating room table and transferred to a regular recovery room. In the PACU she had good pain control secondary to a spinal and digital block. We will plan on the patient being nonweightbearing on the right upper extremity, weight bearing as tolerated on the right lower extremity for tranfers. I attempted to answer all of her questions today and I will see the patient back in follow up in the office in two weeks after she is discharged. We will have the patient on Lovenox for DVT prophylaxis and give her clindamycin for 23 hours after surgery. Job [id number] CC: [facility]
[2016-10-18] MEDS: MULTIVIT W/ MINERALS 1 TAB TABLET PO SCH (20:01)
[2016-10-19] MEDS: LACTATED RINGERS 1,000 ML IV SCH ×3 (02:06→13:57)
[2016-10-19] MEDS: ACETAMINOPHEN 500 MG TABLET PO SCH ×4 (02:07→21:30)
[2016-10-19] MEDS: OXYCODONE HCL 5 MG TABLET PO PRN ×2 (06:07→21:30)
--- NOTE | 2016-10-19 07:53 | PDOC43 ---
- Subjective Subjective: Reports Pain Tolerable (PT states she has a headache this morning. The medical team did not give her the daily beer she was usually getting last night.), Denies Chest Pain, Denies Shortness of Breath, Denies Nausea, Denies Vomiting - Objective Vital Signs Temperature 99.1 F 10/19/16 07:34 Pulse Rate 101 10/19/16 07:34 Respiratory Rate 18 10/19/16 07:34 Blood Pressure 145/97 10/19/16 07:34 O2 Saturation by Pulse Oximetry 94 10/19/16 07:34 Oxygen Delivery Method Room Air Oxygen Flow Rate 0 Laboratory 10/18/16 05:30 10/18/16 05:30 Active Medication Orders Category Date Time Status Acetaminophen [Tylenol] Med 10/16/16 14:00 Active 1,000 mg PO Q6H Ascorbic Acid [Vitamin C] Med 10/16/16 21:00 Active 500 mg PO BID Bisacodyl [Dulcolax] Med 10/19/16 12:19 Active 10 mg SD DAILY PRN Calcium Carbonate [Tums] Med 10/16/16 12:50 Active 1,000 - 2,000 mg PO Q2H PRN Docusate Sodium [Colace] Med 10/16/16 21:00 Active 100 mg PO BID Enoxaparin Sodium [Lovenox] Med 10/17/16 11:00 Active 40 mg SUB-Q Q24H Folic Acid Med 10/16/16 20:30 Active 1 mg PO DAILY Lactated Ringers 1,000 ml Med 10/16/16 12:50 Active IV 125 mls/hr Magnesium Hydroxide [Milk of Magnesia] Med 10/17/16 12:19 Active 30 ml PO DAILY PRN Morphine Sulfate Med 10/16/16 12:50 Active 4 mg IV Q4H PRN Multivitamin W/ Minerals [Theragran-M] Med 10/16/16 21:00 Active 1 tab PO BEDTIME Ondansetron 4 mg/2ml Vial [Zofran] Med 10/16/16 12:50 Active 4 - 6 mg IV Q6H PRN Oxycodone HCl [Roxicodone] Med 10/16/16 12:50 Active 5 - 10 mg PO Q4H PRN Sodium Chloride 0.9% Flush [Normal Saline 10ml Flush] Med 10/16/16 12:50 Active 10 - 50 ml IV PRN PRN Sodium Chloride 0.9% Flush [Normal Saline 10ml Flush] Med 10/16/16 17:00 Active 10 ml IV Q8HR Sulfamethoxazole/Trimethoprim [Septra Ds] Med 10/16/16 19:00 Active 1 each PO BID Thiamine HCl Med 10/16/16 20:30 Active 100 mg PO DAILY Tramadol HCl [Ultram] Med 10/16/16 19:00 Active 50 mg PO Q6H PRN Intake and Output 10/17/16 10/18/16 10/19/16 23:59 23:59 23:59 Intake Total 2662 2670 450 Output Total 2100 3801 350 Balance 562 -1131 100 General: Afebrile - Right Upper Extremity Incision: Dressing Clean/Dry/Intact Gross Sensation to Light Touch: Present: Median Nerve, Ulnar Nerve, Radial Nerve Capillary Refill: < 3 Seconds (Right wrist splint in place in an intrinsic plus position) - Right Lower Extremity Incision: Dressing Clean/Dry/Intact Motor: Extensor Hallucis Longus: 4/5, Tibialis Anterior: 4/5, Gastrocnemius: 4/5 Gross Sensation to Light Touch: Present: Deep Peroneal Nerve, Superficial Peroneal Nerve Capillary Refill: < 3 Seconds - Problems (1) Proximal phalanx fracture of finger Status: Acute - Disposition POD#3 s/p a right hip intertrochanteric frx IMN and right ring finger proximal phalanx intra-articular fracture CRPP Pt is NWB on the RUE in the splint at all times. She is WBAT on the RLE for transfers. Pt uses a wheelchair a lot at baseline Labs are stable PT and OT to work with the patient today Pt is less confused this morning. Recommending minimzing narcotics Clinda x 24 hours postop is completed Appreciate medicine's input on the pt
[2016-10-19] MEDS ORDERED: LORAZEPAM 2 MG/ML 1ML SDV IM PRN (08:35)
[2016-10-19] MEDS ORDERED: LORAZEPAM 0.5 MG TABLET PO PRN (08:35)
[2016-10-19] MEDS: SULFAMETHOXAZOLE 800 MG/TRIMETHOPRIM 160 MG TABLET PO SCH ×2 (08:50→21:29)
[2016-10-19] MEDS: FOLIC ACID 1 MG TABLET PO SCH (08:51)
[2016-10-19] MEDS: THIAMINE HCL 100 MG TABLET PO SCH (08:52)
[2016-10-19] MEDS: ASCORBIC ACID 500 MG TABLET PO SCH ×2 (08:52→21:29)
[2016-10-19] MEDS: DOCUSATE SODIUM 100 MG CAPSULE PO SCH ×2 (09:01→21:30)
[2016-10-19] MEDS: ENOXAPARIN SODIUM 40 MG/0.4 ML SYRINGE SUB-Q SCH (11:18)
[2016-10-19] MEDS ORDERED: BISACODYL 10 MG SUP PR PRN (12:19)
--- NOTE | 2016-10-19 15:06 | PDOC43 ---
- Subjective Chief Complaint: hip pain, fx Laying in bed, appears comfortable but c/o intermittent acute pain in right hand and right hip. Denies dyspnea, faintness or chest pain. Poor apatite but no different than usual. - Objective Vital Signs Temperature 98.7 F 10/19/16 12:00 Pulse Rate 114 10/19/16 12:00 Respiratory Rate 20 10/19/16 13:00 Blood Pressure 107/70 10/19/16 12:00 O2 Saturation by Pulse Oximetry 96 10/19/16 12:00 Oxygen Delivery Method Room Air Oxygen Flow Rate 0 Intake and Output 10/18/16 10/19/16 10/20/16 06:59 06:59 06:59 Intake Total 2070 1770 Output Total 5200 351 Balance -3130 1419 General: Alert, Cooperative, No Oriented x3, No Acute Distress HEENT: Mucous membr. moist/pink Lungs: Clear to Auscultation Bilaterally Cardiovascular: Regular Rate and Rhythm Abdomen: Soft, Normal Bowel Sounds, No Tenderness, No Masses Extremities: Normal Pulses, No Edema Skin: Normal Color Neurological: Normal Speech Psych/Mental Status: Anxious (confused) Laboratory 10/18/16 05:30 10/18/16 05:30 Current Medications: Current meds reviewed in EMR. - Problems: Assessment/Plan (1) Intertrochanteric fracture of right hip Qualifiers: Encounter type: initial encounter Fracture type: closed Qualifier Code: (S72.141A) Displaced intertrochanteric fracture of right femur, initial encounter for closed fracture Status: AcuteAssessment/Plan: Appreciate ortho, anesthesia care. s/p ORIF/IM nailing 10/16 (2) E. coli UTI (urinary tract infection) Status: AcuteAssessment/Plan: On bactrim for E coli cystitis which was present on admit. (3) Proximal phalanx fracture of finger Qualifiers: Encounter type: initial encounter Finger: middle finger Fracture type: closed Laterality: right Status: AcuteAssessment/Plan: S/P repair by Dr. Goldman. (4) Dementia Qualifiers: Dementia type: unspecified type Dementia behavioral disturbance: without behavioral disturbance Qualifier Code: (F03.90) Unspecified dementia without behavioral disturbance Status: ChronicAssessment/Plan: Dementia related to multiple sclerosis and chronic alcohol use. Caution with meds to try to reduce chance of delirium. Suspect that dementia is primary cause of her needing reorientation. Doubt effect from pain meds is a significant problem. Doesn't appear to be having acute alcohol withdrawal. (5) Hypertension Qualifiers: Hypertension type: essential hypertension Qualifier Code: (I10) Essential (primary) hypertension Status: ChronicAssessment/Plan: Stable, parameters (6) Multiple sclerosis Status: ChronicAssessment/Plan: Stable, not on active therapies at this time. (7) Osteoporosis Status: ChronicAssessment/Plan: Start Ca/Vit D Follow up outpt. Previously on Boniva (8) Smoking 1/2 pack a day or less Status: ChronicAssessment/Plan: Nicotine replacement prn and cessation counseling (9) Malnutrition Status: ChronicAssessment/Plan: With BMI 19.7 due to poor nutritional intake. VTE Prophylaxis: enoxaparin Disposition: anticipate SNF, No w/d suggested at this time.
[2016-10-19] MEDS: CALCIUM CARBONATE 600 MG/VITAMIN D3 400 UNIT/TABLET PO SCH (21:29)
[2016-10-19] MEDS: MULTIVIT W/ MINERALS 1 TAB TABLET PO SCH (21:29)
[2016-10-20] MEDS: ACETAMINOPHEN 500 MG TABLET PO SCH ×3 (03:54→14:27)
[2016-10-20] MEDS: OXYCODONE HCL 5 MG TABLET PO PRN ×2 (04:07→08:12)
[2016-10-20] MEDS: FOLIC ACID 1 MG TABLET PO SCH (08:10)
[2016-10-20] MEDS: CALCIUM CARBONATE 600 MG/VITAMIN D3 400 UNIT/TABLET PO SCH (08:11)
[2016-10-20] MEDS: ASCORBIC ACID 500 MG TABLET PO SCH (08:11)
[2016-10-20] MEDS: THIAMINE HCL 100 MG TABLET PO SCH (08:11)
[2016-10-20] MEDS: SULFAMETHOXAZOLE 800 MG/TRIMETHOPRIM 160 MG TABLET PO SCH (08:12)
[2016-10-20] MEDS ORDERED: LISINOPRIL 20 MG TABLET PO SCH (09:00)
[2016-10-20] MEDS: DOCUSATE SODIUM 100 MG CAPSULE PO SCH (09:06)
[2016-10-20] MEDS: ENOXAPARIN SODIUM 40 MG/0.4 ML SYRINGE SUB-Q SCH (11:15)
[2016-10-20 12:11] VITALS: BP 94/60
--- NOTE | 2016-10-20 13:32 | DS ---
Ines Sandoval [id number] : 1950 DATE OF ADMISSION: 10/15/2016 DATE OF DISCHARGE: 10/20/2016 ADMISSION DIAGNOSES: 1. Right intertrochanteric fracture of the right hip. 2. Weakness attributed to multiple sclerosis. 3. Chronic multiple sclerosis. 4. Underlying osteoporosis. 5. Regular alcohol use. 6. Right hand fracture fourth and fifth proximal phalanges. 7. Nicotine dependence. 8. Hypertension. 9. Dementia secondary to multiple sclerosis. DISCHARGE DIAGNOSES: 1. Right intertrochanteric femur fracture, status post repair. 2. Right fourth proximal phalanx fracture, status post repair. 3. Osteoporosis. 4. Chronic multiple sclerosis with dementia, gait disturbance, and balance difficulties. 5. Hypertension. 6. Acute blood loss anemia. 7. Urinary tract infection with Escherichia coli present on admission. 8. Nicotine dependence. 9. Regular alcohol use without withdraw symptoms and now off of alcohol. 10. Chronic mild malnutrition with body mass index of 19.7 due to poor oral intake. CONSULTATIONS: 1. Dr. Chris Goldman. 2. Physical and occupational therapy. PROCEDURES: On October 16 Dr. Goldman took patient to the operating room for repair of right intertrochanteric femur fracture and right fourth finger proximal phalanx fracture. HISTORY: On admission Ms. Sandoval is a 66-year-old with multiple sclerosis and secondary dementia who had a fall at home and suffered a hip fracture and right fourth finger fracture. She was brought to [facility] Emergency Room and admitted by the hospitalist service and consulted with orthopedics. HOSPITAL COURSE: Patient was admitted to med/surg. She underwent surgery on October 16 and did well from surgical prospective. She did have some moderate blood loss anemia, but did not require transfusion. She was given supplement vitamins, but initially was treated with daily beer to prevent withdraw symptoms. This, however, complicated her discharge plan and was discontinued on October 17. She subsequently did well with no alcohol withdraw symptoms and on October 20 she is stable for discharge and transport to [facility]. DISCHARGE EXAM: VITAL SIGNS: Temperature 98.3 degree Fahrenheit, pulse 96, blood pressure 94/60, respiratory rate 20, oxygen saturation 96% on room air. CHEST: Clear to auscultation. HEART: Regular. ABDOMEN: Soft and nontender. EXTREMITIES: Right upper extremity is dressed in a splint/Maximus bandage. Right hip wound is dressed. Dressing is clean and dry. Feet show decreased, but palpable pulses. No edema. DISCHARGE PLAN: 1. Discharge and transport to [facility]. 2. Follow up with Dr. Goldman November 02 at 1:00 p.m. 3. Follow up with Dr. Nguyen as needed. DIET: Regular texture. ACTIVITY: As tolerated, but nonweightbearing on the right hand. Weight bear as tolerated on right lower extremity. She is to have physical and occupational therapy evaluation and treatment. CODE STATUS: Do not resuscitate. PENITENTIARY PLAN: Return home with her . DISCHARGE MEDICATIONS: 1. Ascorbic acid 500 mg by mouth daily. 2. Tramadol 50 mg by mouth every 6 hours as needed. 3. Acetaminophen 1000 mg by mouth every 6 hours as needed. 4. Calcium carbonate 2000 mg by mouth every 2 hours as needed for heartburn. 5. Thiamine 100 mg by mouth daily. 6. Multivitamin 1 daily. 7. Zfwf-[id number] 30 mL by mouth daily as needed. 8. Enoxaparin 40 mg subcutaneously daily for 28 days. 9. Folic acid 1 mg by mouth daily. 10. Docusate sodium 100 mg by mouth twice daily. 11. Calcium with vitamin D 600/400 international units one three times daily for osteoporosis. 12. Lisinopril 20 mg by mouth daily. 13. Prescription for 30 Tramadol tablets was written. Greater than 30 spent on direct patient care and the coordination of care on the day of discharge. JOB: [id number] CC: Dr. Nguyen
== END 2016-10-20 14:30 | DRG 482 ==
LOC: ED 10:17 → DI 10:17 → EDSTATUS 10:57 → MS 11:56
PROVIDERS: ADMIT Family Medicine; ATTEND Family Medicine
PROC: 0QS606Z Reposition Right Upper Femur with Intramedullary Internal Fixation Device, Open Approach (ICD-10-PCS; principal; 2016-10-16)
PROC: 2W3 Placement, Anatomical Regions, Immobilization (ICD-10-PCS; 2016-10-16)
DX: S72.141A Displaced intertrochanteric fracture of right femur, initial encounter for closed fracture (principal); W19.XXXA Unspecified fall, initial encounter; Y92.019 Unspecified place in single-family (private) house as the place of occurrence of the external cause; G35 Multiple sclerosis; F10.20 Alcohol dependence, uncomplicated; M81.0 Age-related osteoporosis without current pathological fracture; F17.210 Nicotine dependence, cigarettes, uncomplicated; I10 Essential (primary) hypertension; F03.90 Unspecified dementia, unspecified severity, without behavioral disturbance, psychotic disturbance, mood disturbance, and anxiety; Z66 Do not resuscitate; S62.616A Displaced fracture of proximal phalanx of right little finger, initial encounter for closed fracture; S62.614A Displaced fracture of proximal phalanx of right ring finger, initial encounter for closed fracture; R07.9 Chest pain, unspecified; W18.30XA Fall on same level, unspecified, initial encounter

== ENCOUNTER 2016-11-30 19:51 | Emergency (ER) | payer MEDICARE ==
--- NOTE | 2016-11-30 20:48 | RAD ---
RIGHT HAND 3 VIEWS HISTORY: Right hand pain. COMPARISONS: . TECHNIQUE: Frontal, lateral, and oblique views of the right hand. ALIGNMENT: Minor radial subluxation at the first carpometacarpal joint. FRACTURE: Interval cast removal. Redemonstration of fourth proximal phalangeal fracture with hardware fixation. Grossly stable alignment of fracture fragments. When compared to imaging from 10/16/2016 there is apparent left lateral shift in transverse fixation wires, with increased protrusion into adjacent soft tissues, of uncertain significance. No new displaced acute fracture. SOFT TISSUES: Diffuse soft tissue swelling of the fourth digit. RADIOOPAQUE FOREIGN BODY: Fixation wire as above. IMPRESSION: Status post open reduction and internal fixation at site of fourth proximal phalangeal fracture with increased lateral shift of transverse fixation wires with associated soft tissue prominence. No new displaced acute fracture.
[2016-11-30] MEDS ORDERED: DIAZEPAM 5 MG TABLET ONE (21:20)
== END 2016-11-30 21:30 | disposition home or self-care (01) ==
LOC: ED 19:51
DX: M79.641 Pain in right hand (principal); G35 Multiple sclerosis; F17.210 Nicotine dependence, cigarettes, uncomplicated
CPT/HCPCS: 73130; 99283 ×2; A9270

== ENCOUNTER 2016-12-08 05:49 | Day surgery (SDC) | payer MEDICARE ==
--- NOTE | 2016-12-07 09:53 | HP ---
DATE OF CLINIC: 11/22/2016 INES SANDOVAL : 1950 PLANNED PROCEDURE: Hardware Removal (3 pins) Right Ring Finger DATE OF SURGERY: December 08, 2016 SURGEON: Jason Guillory M.D. HISTORY OF PRESENT ILLNESS Ines Sandoval is a 66 year old female. * Medication list reviewed with patient allergy list reviewed with patient. * Has not tried NSAIDS * Has not tried Physical Therapy * Has not tried Injections This is a 66-year-old female previously seen by Dr. Goldman for a right intertrochanteric hip fracture and a right ring finger proximal phalanx fracture. He treated the finger with a percutaneous pinning with buried pins. She presented for routine f/u where we discussed pin removal and she presents today preoperatively for this. CURRENT MEDICATION * Acetaminophen 325 MG Tablet as needed 0 days, 0 refills * Rkjgrfxu-Zcfpnwtoz-Yiskfqkhxtn 200-200-20 MG/5ML Suspension as directed 0 days, 0 refills * Calcium Carbonate 500 (200 Ca) MG Wafer as needed 0 days, 0 refills * Chewables Multivitamin Tablet Chewable 1 once a day 0 days, 0 refills * Colace 100 MG Capsule 1 twice a day 0 days, 0 refills * Folic Acid 1 MG Tablet 1 once a day 0 days, 0 refills * Lisinopril 20 MG Tablet 1 once a day 0 days, 0 refills * Lovenox 40 MG/0.4ML Solution 1 once a day 0 days, 0 refills * Milk of Magnesia 400 MG/5ML Suspension as directed 0 days, 0 refills * TraMADol HCl 50 MG Tablet as directed 0 days, 0 refills * Tums 500 MG Tablet Chewable as directed 0 days, 0 refills * Vitamin B1 100 MG Tablet 1 once a day 0 days, 0 refills * Vitamin C 500 MG Tablet 1 twice a day 0 days, 0 refills * Vitamin D3 1000 UNIT Tablet 1 once a day 0 days, 0 refills PAST MEDICAL/SURGICAL HISTORY Reported: Medical: Multiple sclerosis, a fracture Right humerus fx 09/06/11, Hypertension, and Osteoporosis. Dementia. SOCIAL HISTORY Behavioral: Never smoked. Smoking status: Never smoker. Alcohol: Alcohol 2 beers a day. Work: Retired. ALLERGIES * Penicillins FAMILY HISTORY 3 children living REVIEW OF SYSTEMS No recent constitutional symptoms to include fevers and chills. No cardiovascular symptoms to include chest pain or palpitations. No respiratory symptoms to include shortness of breath or recent infections. PHYSICAL FINDINGS * Vitals taken 11/22/2016 09:22 am BP-Sitting L 143/75 mmHg Pulse Rate-Sitting 88 bpm Temp-Oral 98.2 F Height 62 in Weight 110 lbs Body Mass Index 20.1 kg/m2 Body Surface Area 1.48 m2 Pain Level 1 Ears, Nose, Throat: * ENT: normal. Lungs: * Clear to auscultation. Cardiovascular: Heart Rate and Rhythm: * Normal. Abdomen: * Normal. Neurological: Motor: * Dominant Hand = Right Hand. She has got well perfused fingers. No evidence of ongoing deformity or instability at the finger. She has the entry sites from the pins that are not erythematous, they just show some healing scars. TESTS * Test: CBC NO DIFF Report Date: 11/22/2016 WBC 6.9 10*3/mL RBC 4.59 10*6/uL MCH 29.8 pg MCHC 32.3 g/dL Low RDW 15.6 % High MCV 92.4 fL PLATELET COUNT 444 10*3/mL High HCT 42.4 % HGB 13.7 g/L * Test: COMPREHENSIVE METABOLIC PANEL Report Date: 11/22/2016 ALT/SGPT 25 U/L ALBUMIN 4.4 g/dL ALB/GLOB RATIO 1.5 BUN 9 mg/dL BUN/CREAT RATIO 15 CALCIUM 10.2 mg/dL GLUCOSE 87 mg/dL CREATININE 0.6 mg/dL SODIUM 138 meq/L POTASSIUM 4.5 meq/L CHLORIDE 100 meq/L CARBON DIOXIDE 30 meq/L ANION GAP 13 meq/L TOT PROTEIN 7.4 g/dL GLOBULIN 3.0 g/dL BILI,TOTAL 0.6 mg/dL AST/SGOT 22 U/L ALK PHOSPHATASE 152 U/L High GFR 100 High IMAGING: Review of her x-rays shows three buried pins in the base of the proximal phalanx of the right ring finger. ASSESSMENT * Pathologic fracture of the right ring finger proximal phalanx THERAPY * Patient fall risk screen positive using a wheelchair. * Patient eligible for fall risk assessment. * Patient received fall risk assessment. PLAN The plan will be for a removal of hardware in the operating room likely under Nitin block. CARE TEAM Truong Nguyen MD Family Practice SURGICAL CONSENT We have discussed surgical options including pin removal from right ring finger (3 pins) and non-operative management. The patient was counseled in detail regarding the diagnosis, treatment options available, prognosis of each treatment option and the potential risks and complications. The risks of surgery include, but are not limited to, anesthetic , neurovascular complications, pulmonary embolism, deep vein thrombosis, wound dehiscence, failure of any or all of the discussed procedures, infection of the joint or surrounding soft tissue, need for revision surgery, chronic pain, limitations in activities of daily living, inability to return to work, and loss of normal range of motion or functional use of the extremity. There is the possibility of failure over time that may require additional operative or non-operative treatment. The patient acknowledged that there are a number of perioperative risks not mentioned here and would still like to proceed. The patient is aware of and understands these risks, and wishes to proceed with the proposed surgical procedure and other procedures as indicated at the time of surgery. We will have the patient see their PCP for a preoperative medical risk assessment. The preoperative instructions were reviewed with the patient and all questions were answered. PB/sg
[~2016-12-08 05:49] MED LIST: CLINDAMYCIN 600 MG PREMIX 50 ML IV PRN; IV START KIT ONE; LACTATED RINGERS 1,000 ML ONE
[2016-12-08] MEDS ORDERED: CLINDAMYCIN 600 MG IV ONE (06:16)
[2016-12-08] MEDS ORDERED: IV START KIT ONE (06:22)
[2016-12-08] MEDS ORDERED: PROPOFOL 20 ML IV ONE (06:54)
[2016-12-08] MEDS ORDERED: BUPIVACAINE 0.5% (PRES FREE) 30 ML VIAL ONE (06:56)
[2016-12-08] MEDS ORDERED: MIDAZOLAM HCL 1 MG/ML 2ML VIAL ONE (06:56)
[2016-12-08] MEDS ORDERED: FENTANYL 100 MCG/2 ML VIAL ONE (06:56)
[2016-12-08] MEDS ORDERED: LIDOCAINE 1% (PRES FREE) 30 ML VIAL ONE (06:56)
[2016-12-08] MEDS ORDERED: CLINDAMYCIN 600 MG PREMIX 50 ML IV ONE (07:10)
[2016-12-08] MEDS ORDERED: LIDOCAINE 0.5% (PRES FREE) 50 ML VIAL ONE (07:17)
--- NOTE | 2016-12-08 08:23 | PCMBPN ---
Brief Post Op Note: Date of Procedure: 12/08/16 Start Time: 07 Preoperative Diagnosis: 1. right ring finger retained symptomatic hardware Postoperative Diagnosis: 1. Same Procedure: right ring finger hardware removal Surgeon: Jason Guillory MD Assist: none Anesthesia: Anton Villagomez Findings: as above Condition: stable to PACU Complications: none IV Fluids: 600 mLs of LR Urine Output: 0 mLs Estimated Blood Loss: 5 mLs Tourniquet Time: 35 min at 250 mm Hg (Nitin block) Specimens: none Implants: 3 k-wires removed Drains: none Jason Guillory MD
[2016-12-08] MEDS ORDERED: HYDROMORPHONE HCL 1 MG/ML SYRINGE IV PRN (08:40)
[2016-12-08] MEDS ORDERED: DIPHENHYDRAMINE HCL 50 MG/1 ML VIAL IV PRN (08:40)
[2016-12-08] MEDS ORDERED: OXYCODONE HCL 5 MG TABLET PO PRN (08:40)
[2016-12-08] MEDS ORDERED: LACTATED RINGERS 1,000 ML IV SCH (08:40)
[2016-12-08] MEDS ORDERED: ACETAMINOPHEN 325 MG TABLET PO PRN (08:40)
--- NOTE | 2016-12-08 09:12 | RAD ---
HAND RIGHT 2 VIEWS COMPARISON: Right hand 3 views, 11/30/2016 HISTORY: 3 pins removed from the right ring finger proximal phalanx fracture. FINDINGS: Views: Right ring finger PA and lateral. Bones: Successful removal of the 3 pins Joints: Normal. Soft tissues: Normal IMPRESSION: Successful removal of the 3 pins from the fractured proximal phalanx of the right ring finger.
--- NOTE | 2016-12-09 08:26 | OP ---
Ines BAILEY : 1950 [id number] DATE OF PROCEDURE: December 08, 2016 PREOPERATIVE DIAGNOSIS: Right ring finger retained symptomatic hardware. POSTOPERATIVE DIAGNOSIS: Right ring finger retained symptomatic hardware. PROCEDURE PERFORMED: RIGHT RING FINGER HARDWARE REMOVAL. SURGEON: Jason Guillory M.D. SATURATION EQUIPMENT OPERATOR: None. ANESTHESIA: By Tariq DixonRGiovannaNKimberley SPECIMENS: No material was sent to the laboratory. ESTIMATED BLOOD LOSS: 5 mL. FLUIDS REPLACED: 600 mL crystalloid. TOURNIQUET TIME: 35 minutes at 250 mmHg for the [place] block. IMPLANTS: No implants. We did remove the three fragments of a K-wire. DRAINS: None. INDICATIONS: A 66-year-old female who previously underwent a closed reduction and percutaneous pin fixation of a right ring finger proximal phalanx fracture by my partner Dr. Chris Goldman and now presents with a healed fracture with retained symptomatic hardware requiring removal. The risks, benefits and alternatives were discussed with the patient and she elected to proceed. DESCRIPTION OF PROCEDURE: The patient was identified in the preoperative holding area where she was marked with an indelible marker and taken to the operating room where she was placed in a supine position on the operating room table. She was propped up at the shoulders and her hand was placed on the hand table. A Nitin block anesthesia was administered. She was prepped and draped in the usual sterile fashion for surgery. Operative time out was performed and confirmed by all members of the operative team. The location of the pins was localized using a mini C-arm and then two small incisions were made on the dorsum of the patient's hand. Blunt dissection was carried down identifying and retrieving the pins through these incisions. The wound sites were washed with sterile saline and closed with #4-0 Nylon and then 10 mL of 0.5% Marcaine was injected to perform a digital block and local anesthesia for postoperative pain control. A sterile dressing of Xeroform, fluffs, web roll and an MATY bandage was applied. The tourniquet which had been inflated at the beginning of the procedure for the Nitin block was deflated. The drapes were removed. The patient was awakened from her sedation. She was transferred from the stretcher and was taken postoperatively to the postanesthesia care unit in stable condition. There were no observed intraoperative complications during this procedure. Job [id number] Cc: [facility]
== END 2016-12-08 09:18 | disposition home or self-care (01) ==
LOC: SDC 05:49
PROVIDERS: ATTEND Orthopaedic Surgery
PROC: 0PPT04Z Removal of Internal Fixation Device from Right Finger Phalanx, Open Approach (ICD-10-PCS; principal; 2016-12-08)
DX: T84.84XA Pain due to internal orthopedic prosthetic devices, implants and grafts, initial encounter (principal); G35 Multiple sclerosis; I10 Essential (primary) hypertension; M81.0 Age-related osteoporosis without current pathological fracture; F03.90 Unspecified dementia, unspecified severity, without behavioral disturbance, psychotic disturbance, mood disturbance, and anxiety; Z79.899 Other long term (current) drug therapy; Z88.0 Allergy status to penicillin